=== PATIENT | female | born 1965 | race Caucasian/White ===

== ENCOUNTER 2017-10-14 17:18 | Inpatient (IN) | payer MEDICARE, OTHER ==
[~2017-10-14] VITALS: Ht 147.3 cm; Wt 47.6 kg
[~2017-10-14 17:18] MED LIST: DEPAKOTE250 MG PO; DEPAKOTE500 MG PO; DILANTIN100 MG PO; FOSAMAX70 MG ORAL; FOSAMAX70 MG PO; GEODON40 MG PO; IBUPROFEN600 MG ORAL; KEFLEX500 MG ORAL; KLONOPIN1 MG ORAL; KLONOPIN1 MG PO; MACROBID100 MG ORAL; MORPHINE IR15 MG PO; NAPROXEN SODIU550 M1 ORAL; NITROFURANTOIN100 M2 ORAL; NORCO 5-325 TA1 EACH ORAL; PROTONIX40 MG ORAL; RESTORIL30 MG ORAL; SYMBICORT 1601 PUFFS INH; ZOFRAN4 M3 ORAL
[2017-10-14 17:30] VITALS: BP 139/90
[2017-10-14] MEDS ORDERED: LORazepam Inj 2mg/ml 1ml IV ONE (18:00)
--- NOTE | 2017-10-14 18:01 | Emergency Room Report ---
History of Present Illness General Chief Complaint: Seizure Source: Patient Present Illness HPI Patient is a 52-year-old female who presented after witnessed seizure. Patient prior history of seizure disorder. The patient was noted to have a seizure lasting approximate 7 minutes. Patient had previous he been taking Dilantin but had been off of her medications. The patient poorly had been seizure-free for several weeks. Patient was having increased difficulty with urination. The patient had prior history of bipolar disease as well as CVA. Patient was noted to have increased difficulty with urination Allergies: Coded Allergies: No Known Allergies (Verified Allergy, Unknown, 05/09/08) Patient History Past Medical History: see triage record Reviewed Nursing Documentation: PMH: Agreed; PSxH: Agreed Nursing Documentation-PMH Past Medical History: No History, Except For Hx Cardiac Problems: Yes Hx Hypertension: Yes Hx Pacemaker: No - TRACHEOSTOMY (RESOLVED), HEP C Hx Asthma: No Hx COPD: Yes - emphysema Hx Diabetes: No Hx Cancer: No Hx Gastrointestinal Problems: Yes Hx Dialysis: No Hx Cerebrovascular Accident: Yes - 1991 Hx Transient Ischemic Attacks: No Hx Dementia: No Hx Alzheimer's Disease: No Hx Parkinson's Disease: No Hx Meningitis: No Hx Encephalitis: No Hx Seizures: Yes Hx Epilepsy: No Hx Multiple Sclerosis: No Hx Amyotrophic Lat Sclerosis: No Hx Guillian-Volga Syndrome: No Hx Paralysis: No Hx Peripheral Neuropathy: No Hx Spinal Cord Injury: No Hx Head Trauma: No Hx Traumatic Brain Injury: No Hx Memory Loss: No Hx Concentration Difficulty: Yes Hx Speech Problem: No Hx Tremors: No Hx Vertigo: No Hx Dizziness: Yes Hx Syncope: No Hx Headaches: Yes Hx Aphasia: No Hx Dysphasia: No Hx Numbness: Yes - left lower extremities Hx Weakness: Yes - oleft sided weakness Hx Fatigue: Yes Hx Neurologic Surgery: No Hx Brain Shunt: No Review of Systems All Other Systems: negative except mentioned in HPI Physical Exam Vital Signs Date Time Temp Pulse Resp B/P (MAP) Pulse Ox O2 Delivery O2 Flow Rate FiO2 10/14/17 17:25 98.0 111 22 142/93 94 Room Air 98.1 Sp02 EP Interpretation: reviewed, normal General Appearance: normal inspection, well appearing, no apparent distress, alert, GCS 15, thin, Chronically Ill Head: atraumatic ENT: normal ENT inspection, hearing grossly normal, normal voice Neck: normal inspection, full range of motion, supple, no bony tend Respiratory: normal inspection, lungs clear, normal breath sounds, no respiratory distress, no retraction, no wheezing Cardiovascular #1: regular rate, rhythm, no edema Gastrointestinal: normal inspection, normal bowel sounds, non tender, soft, no guarding, no hernia Genitourinary: no CVA tenderness Musculoskeletal: normal inspection, back normal, normal range of motion Neurologic: normal inspection, alert, oriented x3, responsive, speech normal, motor weakness - left upper extremity contracture Psychiatric: normal inspection, judgement/insight normal, mood/affect normal Skin: normal inspection, normal color, no rash Medical Decision Making Diagnostic Impression: Primary Impression: Seizure Additional Impressions: Left hemiparesis Urinary tract infection ER Course Patient presented for seizure. Differential diagnosis included medication noncompliance, cysticercosis, electrolyte abnormality, mass lesion, or intracranial hemorrhage. Because of complexity of patient's case laboratory testing and imaging studies were ordered. The patient was noted to have prior history of seizure disorder but had been noncompliant the with seizure medications.IV Ativan was ordered for seizure prophylaxis however the patient began seizing prior to medication administration was subsequently administered. The patient Dilantin level and Depakote level were not therapeutic. The patient was subsequently loaded with IV Dilantin.Dr. Esvin Patino was contacted for inpatient management due to panel physician Labs Test 10/14/17 17:48 10/14/17 18:00 10/14/17 18:20 10/15/17 06:08 Phenytoin (Dilantin) Level < 0.5 ug/mL (10-20) Valproic Acid (Depakene) Level < 3 MCG/ML (50-100) Urine Amorphous Sediment Few /LPF (NONE) Urine Opiates Screen Negative (NEGATIVE) Urine Barbiturates Screen Negative (NEGATIVE) Phencyclidine (PCP) Screen Negative (NEGATIVE) Urine Amphetamines Screen Negative (NEGATIVE) Urine Benzodiazepines Screen Negative (NEGATIVE) Urine Cocaine Screen Negative (NEGATIVE) Urine Marijuana (THC) Screen Positive (NEGATIVE) White Blood Count 10.3 K/UL (4.8-10.8) Red Blood Count 4.00 M/UL (4.20-5.40) Hemoglobin 12.7 G/DL (12.0-16.0) Hematocrit 37.4 % (37.0-47.0) Mean Corpuscular Volume 93 FL (80-99) Mean Corpuscular Hemoglobin 31.7 PG (27.0-31.0) Mean Corpuscular Hemoglobin Concent 33.9 G/DL (32.0-36.0) Red Cell Distribution Width 12.1 % (11.6-14.8) Platelet Count 221 K/UL (150-450) Mean Platelet Volume 8.3 FL (6.5-10.1) Neutrophils (%) (Auto) 42.8 % (45.0-75.0) Lymphocytes (%) (Auto) 48.9 % (20.0-45.0) Monocytes (%) (Auto) 6.4 % (1.0-10.0) Eosinophils (%) (Auto) 0.7 % (0.0-3.0) Basophils (%) (Auto) 1.3 % (0.0-2.0) Sodium Level 143 MMOL/L (136-145) Potassium Level 3.4 MMOL/L (3.5-5.1) Chloride Level 109 MMOL/L (98-107) Carbon Dioxide Level 26 MMOL/L (21-32) Anion Gap 8 mmol/L (5-15) Blood Urea Nitrogen 14 mg/dL (7-18) Creatinine 0.6 MG/DL (0.55-1.30) Estimat Glomerular Filtration Rate > 60 mL/min (>60) Glucose Level 100 MG/DL (74-106) Calcium Level 9.0 MG/DL (8.5-10.1) Total Bilirubin 0.6 MG/DL (0.2-1.0) Aspartate Amino Transf (AST/SGOT) 14 U/L (15-37) Alanine Aminotransferase (ALT/SGPT) 15 U/L (12-78) Alkaline Phosphatase 30 U/L (46-116) Total Protein 6.7 G/DL (6.4-8.2) Albumin 3.7 G/DL (3.4-5.0) Globulin 3.0 g/dL Albumin/Globulin Ratio 1.2 (1.0-2.7) Test 10/15/17 13:30 Urine Color Yellow Urine Appearance Cloudy Urine pH 5 (4.5-8.0) Urine Specific [place] 1.020 (1.005-1.035) Urine Protein 1+ (NEGATIVE) Urine Glucose (UA) Negative (NEGATIVE) Urine Ketones 1+ (NEGATIVE) Urine Occult Blood 3+ (NEGATIVE) Urine Nitrite Positive (NEGATIVE) Urine Bilirubin 1+ (NEGATIVE) Urine Urobilinogen 1 MG/DL (0.0-1.0) Urine Leukocyte Esterase 1+ (NEGATIVE) EKG Diagnostic Results Rate: normal Rhythm: NSR ST Segments: no acute changes Last Vital Signs Date Time Temp Pulse Resp B/P (MAP) Pulse Ox O2 Delivery O2 Flow Rate FiO2 10/14/17 17:25 98.0 111 22 142/93 94 Room Air 98.1 Status: unchanged Disposition: ADMITTED INPATIENT Condition: Serious Referrals: NON PHYSICIAN (PCP) Surendra Pinedo MD Oct 14, 2017 18:01
[2017-10-14 18:09] LABS: BASOPHILS % (AUTO) 1.5 % (0.0-2.0); EOSINOPHILS % (AUTO) 0.6 % (0.0-3.0); HEMATOCRIT 41.2 % (37.0-47.0); HEMOGLOBIN 14.2 G/DL (12.0-16.0); LYMPHOCYTES % (AUTO) 40.9 % (20.0-45.0); MEAN CORPUSCULAR VOLUME 92 FL (80-99); MONOCYTES % (AUTO) 6.6 % (1.0-10.0); NEUTROPHILS % (AUTO) 50.4 % (45.0-75.0); PLATELET COUNT 180 K/UL (150-450); RED BLOOD COUNT 4.46 M/UL (4.20-5.40); WHITE BLOOD COUNT 11.1 K/UL (4.8-10.8)
[2017-10-14 18:13] LABS: ANION GAP 14 mmol/L (5-15); BLOOD UREA NITROGEN 18 mg/dL (7-18); CALCIUM 9.4 MG/DL (8.5-10.1); CARBON DIOXIDE 20 MMOL/L (21-32); CHLORIDE 107 MMOL/L (98-107); CREATININE 0.6 MG/DL (0.55-1.30); SODIUM 141 MMOL/L (136-145)
[2017-10-14 18:20] LABS: ALANINE AMINOTRANSFERASE 16 U/L (12-78); ALBUMIN 4.2 G/DL (3.4-5.0); ALBUMIN/GLOBULIN RATIO 1.2 (1.0-2.7); ALKALINE PHOSPHATASE 35 U/L (46-116); ASPARTATE AMINO TRANSFERASE 23 U/L (15-37); BILIRUBIN,TOTAL 0.7 MG/DL (0.2-1.0)
[2017-10-14] MEDS ORDERED: Phenytoin 1,000 MG in NS 275 ML IVPB ONE (18:30)
[2017-10-14 19:04] LABS: APPEARANCE,URINE CLEAR; BILIRUBIN, URINE NEGATIVE (NEGATIVE); COLOR,URINE PALE YELLOW; GLUCOSE, URINE (UA) NEGATIVE (NEGATIVE); KETONES,URINE NEGATIVE (NEGATIVE); LEUKOCYTE ESTERASE ,URINE NEGATIVE (NEGATIVE); NITRITE,URINE NEGATIVE (NEGATIVE); PH,URINE 5 (4.5-8.0); PROTEIN,URINE NEGATIVE (NEGATIVE); UROBILINOGEN,URINE NORMAL MG/DL (0.0-1.0)
[2017-10-14] MEDS ORDERED: LORazepam Inj 2mg/ml 1ml IV PRN (19:15)
[2017-10-14] MEDS ORDERED: Miralax 17gm pkt ORAL PRN (19:15)
[2017-10-14] MEDS ORDERED: Mylanta II UD 30ml ORAL PRN (19:15)
[2017-10-14 19:30] VITALS: BP 118/74
[2017-10-14 19:55] VITALS: BP 139/90
[2017-10-14] MEDS ORDERED: IBUPROFEN600 MG ORAL (19:56)
[2017-10-14] MEDS ORDERED: BACLOFEN10 MG ORAL (19:56)
[2017-10-14 20:00] VITALS: BP 129/68
[2017-10-14] MEDS: Phenytoin 100mg cap ORAL SCH (21:16)
[2017-10-14] MEDS: Heparin 5000 units/ml inj SUBQ SCH (21:17)
[2017-10-14] MEDS: Zolpidem 5mg tab ORAL PRN (22:40)
[2017-10-15] VITALS: BP 118/74
[2017-10-15 04:00] VITALS: BP 103/72
[2017-10-15 06:48] LABS: BASOPHILS % (AUTO) 1.3 % (0.0-2.0); EOSINOPHILS % (AUTO) 0.7 % (0.0-3.0); HEMATOCRIT 37.4 % (37.0-47.0); HEMOGLOBIN 12.7 G/DL (12.0-16.0); LYMPHOCYTES % (AUTO) 48.9 % (20.0-45.0); MEAN CORPUSCULAR VOLUME 93 FL (80-99); MONOCYTES % (AUTO) 6.4 % (1.0-10.0); NEUTROPHILS % (AUTO) 42.8 % (45.0-75.0); PLATELET COUNT 221 K/UL (150-450); RED CELL DISTRIBUTION WIDTH 12.1 % (11.6-14.8); WHITE BLOOD COUNT 10.3 K/UL (4.8-10.8)
[2017-10-15 07:07] LABS: ALANINE AMINOTRANSFERASE 15 U/L (12-78); ALBUMIN 3.7 G/DL (3.4-5.0); ALBUMIN/GLOBULIN RATIO 1.2 (1.0-2.7); ALKALINE PHOSPHATASE 30 U/L (46-116); ANION GAP 8 mmol/L (5-15); ASPARTATE AMINO TRANSFERASE 14 U/L (15-37); BILIRUBIN,TOTAL 0.6 MG/DL (0.2-1.0); BLOOD UREA NITROGEN 14 mg/dL (7-18); CARBON DIOXIDE 26 MMOL/L (21-32); CHLORIDE 109 MMOL/L (98-107); CREATININE 0.6 MG/DL (0.55-1.30); POTASSIUM 3.4 MMOL/L (3.5-5.1); SODIUM 143 MMOL/L (136-145)
[2017-10-15 08:00] VITALS: BP 111/74
[2017-10-15] MEDS: Depakote 500mg tab ORAL SCH ×2 (08:12→12:15)
[2017-10-15] MEDS: Heparin 5000 units/ml inj SUBQ SCH ×2 (08:14→21:34)
--- NOTE | 2017-10-15 11:07 | Cardiac Electrophysiology PN ---
Subjective Subjective [id number] Objective Last 24 Hour Vital Signs Date Time Temp Pulse Resp B/P (MAP) Pulse Ox O2 Delivery O2 Flow Rate FiO2 10/15/17 08:00 109 10/15/17 08:00 97.2 101 18 111/74 (86) 98 97.2 10/15/17 04:00 97.7 92 19 103/72 (82) 98 97.7 10/15/17 04:00 107 10/15/17 00:00 116 10/15/17 00:00 97.9 97 20 118/74 (89) 99 97.9 10/14/17 22:26 Room Air 10/14/17 20:00 96 10/14/17 20:00 97.0 98 18 129/68 (88) 97 97.0 10/14/17 19:55 98.3 110 19 139/90 100 Room Air 98.3 10/14/17 19:55 98.3 110 18 139/90 100 Room Air 10/14/17 19:30 98.3 110 17 118/74 98 Room Air 98.3 10/14/17 17:30 100 18 Room Air 10/14/17 17:30 98.3 100 18 139/90 98 Room Air 98.3 10/14/17 17:25 98.0 111 22 142/93 94 Room Air 98.1 Intake and Output 10/14/17 10/15/17 19:00 07:00 Intake Total 535 ml Balance 535 ml Intake Oral 240 ml IV Total 295 ml # Voids 1 4 Laboratory Tests Test 10/14/17 17:48 10/14/17 18:00 10/14/17 18:20 10/15/17 06:08 White Blood Count 11.1 K/UL (4.8-10.8) H 10.3 K/UL (4.8-10.8) Red Blood Count 4.46 M/UL (4.20-5.40) 4.00 M/UL (4.20-5.40) L Hemoglobin 14.2 G/DL (12.0-16.0) 12.7 G/DL (12.0-16.0) Hematocrit 41.2 % (37.0-47.0) 37.4 % (37.0-47.0) Mean Corpuscular Volume 92 FL (80-99) 93 FL (80-99) Mean Corpuscular Hemoglobin 31.7 PG (27.0-31.0) H 31.7 PG (27.0-31.0) H Mean Corpuscular Hemoglobin Concent 34.3 G/DL (32.0-36.0) 33.9 G/DL (32.0-36.0) Red Cell Distribution Width 12.0 % (11.6-14.8) 12.1 % (11.6-14.8) Platelet Count 180 K/UL (150-450) 221 K/UL (150-450) Mean Platelet Volume 6.4 FL (6.5-10.1) L 8.3 FL (6.5-10.1) Neutrophils (%) (Auto) 50.4 % (45.0-75.0) 42.8 % (45.0-75.0) L Lymphocytes (%) (Auto) 40.9 % (20.0-45.0) 48.9 % (20.0-45.0) H Monocytes (%) (Auto) 6.6 % (1.0-10.0) 6.4 % (1.0-10.0) Eosinophils (%) (Auto) 0.6 % (0.0-3.0) 0.7 % (0.0-3.0) Basophils (%) (Auto) 1.5 % (0.0-2.0) 1.3 % (0.0-2.0) Sodium Level 141 MMOL/L (136-145) 143 MMOL/L (136-145) Potassium Level 4.0 MMOL/L (3.5-5.1) 3.4 MMOL/L (3.5-5.1) L Chloride Level 107 MMOL/L (98-107) 109 MMOL/L (98-107) H Carbon Dioxide Level 20 MMOL/L (21-32) L 26 MMOL/L (21-32) Anion Gap 14 mmol/L (5-15) 8 mmol/L (5-15) Blood Urea Nitrogen 18 mg/dL (7-18) 14 mg/dL (7-18) Creatinine 0.6 MG/DL (0.55-1.30) 0.6 MG/DL (0.55-1.30) Estimat Glomerular Filtration Rate > 60 mL/min (>60) > 60 mL/min (>60) Glucose Level 111 MG/DL (74-106) H 100 MG/DL (74-106) Calcium Level 9.4 MG/DL (8.5-10.1) 9.0 MG/DL (8.5-10.1) Total Bilirubin 0.7 MG/DL (0.2-1.0) 0.6 MG/DL (0.2-1.0) Aspartate Amino Transf (AST/SGOT) 23 U/L (15-37) 14 U/L (15-37) L Alanine Aminotransferase (ALT/SGPT) 16 U/L (12-78) 15 U/L (12-78) Alkaline Phosphatase 35 U/L (46-116) L 30 U/L (46-116) L Total Protein 7.8 G/DL (6.4-8.2) 6.7 G/DL (6.4-8.2) Albumin 4.2 G/DL (3.4-5.0) 3.7 G/DL (3.4-5.0) Globulin 3.6 g/dL 3.0 g/dL Albumin/Globulin Ratio 1.2 (1.0-2.7) 1.2 (1.0-2.7) Phenytoin (Dilantin) Level < 0.5 ug/mL (10-20) L Valproic Acid (Depakene) Level < 3 MCG/ML (50-100) L Urine Color Pale yellow Urine Appearance Clear Urine pH 5 (4.5-8.0) Urine Specific [place] 1.010 (1.005-1.035) Urine Protein Negative (NEGATIVE) Urine Glucose (UA) Negative (NEGATIVE) Urine Ketones Negative (NEGATIVE) Urine Occult Blood 2+ (NEGATIVE) H Urine Nitrite Negative (NEGATIVE) Urine Bilirubin Negative (NEGATIVE) Urine Urobilinogen Normal MG/DL (0.0-1.0) Urine Leukocyte Esterase Negative (NEGATIVE) Urine RBC 0-2 /HPF (0 - 2) Urine WBC 0-2 /HPF (0 - 2) Urine Squamous Epithelial Cells Occasional /LPF Urine Amorphous Sediment Few /LPF (NONE) H Urine Bacteria Occasional /HPF (NONE) Urine Opiates Screen Negative (NEGATIVE) Urine Barbiturates Screen Negative (NEGATIVE) Phencyclidine (PCP) Screen Negative (NEGATIVE) Urine Amphetamines Screen Negative (NEGATIVE) Urine Benzodiazepines Screen Negative (NEGATIVE) Urine Cocaine Screen Negative (NEGATIVE) Urine Marijuana (THC) Screen Positive (NEGATIVE) H Hugh Chapman MD Oct 15, 2017 11:07
--- NOTE | 2017-10-15 11:55 | Consultation ---
History of Present Illness General Date patient seen: Oct 15, 2017 Chief Complaint: Seizure Present Illness HPI 52-year-old female with PMHx of chronic seizures, bipolar, CVA presented to ER with CC of witnessed seizure, lasting approximate 7 minutes. Patient had previously been taking Dilantin but had been off of her medications. She is also c/o difficulty with urination and dysuria. Allergies: Coded Allergies: No Known Allergies (Verified Allergy, Unknown, 05/09/08) Medication History Scheduled Alendronate Sodium* (Fosamax*), 70 MG ORAL ONCE A WEEK, (Reported) Budesonide/Formoterol Fumarate (Symbicort 160-4.5 Mcg Inhaler), 2 PUFF INH TWICE A DAY, (Reported) Clonazepam* (Klonopin*), 1 MG ORAL bid, (Reported) Divalproex Sodium (Depakote), 500 MG PO tid, (Reported) Divalproex Sodium* (Depakote*), 300 MG PO hs, (Reported) Ziprasidone Hcl* (Geodon*), 80 MG PO bid, (Reported) Scheduled PRN Baclofen* (Baclofen*), 10 MG ORAL THREE TIMES A DAY PRN for Muscle Spasm, ( Reported) Ibuprofen* (Motrin*), 800 MG ORAL THREE TIMES A DAY PRN for For Pain, (Reported) Ondansetron* (Zofran*), 4 MG ORAL tid PRN for Nausea & Vomiting, (Reported) Discontinued Medications Cephalexin* (Keflex*), 500 MG ORAL EVERY 12 HOURS Discontinued Reason: Therapy completed Ibuprofen* (Motrin*), 600 MG ORAL Q8H PRN for For Pain Discontinued Reason: Medication dose changed Nitrofurantoin Monohyd/M-Cryst* (Macrobid 100 Mg*), 100 MG ORAL EVERY 12 HOURS Discontinued Reason: Therapy completed Phenytoin Sodium Extended* (Dilantin*), 300 MG PO QHS, (Reported) Discontinued Reason: Pt stopped taking med Temazepam (Restoril*), 30 MG ORAL BEDTIME, (Reported) Discontinued Reason: Therapy completed Patient History Healthcare decision maker Resuscitation status Full Code Advanced Directive on File Past Medical/Surgical History Past Medical/Surgical History: (1) Seizure (2) Left hemiparesis (3) Cerebral vascular disease (4) Bipolar disorder (5) Hepatitis C Review of Systems All Other Systems: negative except mentioned in HPI Physical Exam General Appearance: WD/WN Lines, tubes and drains: peripheral HEENT: normocephalic, atraumatic Neck: non-tender, normal alignment Respiratory/Chest: chest wall non-tender, lungs clear Cardiovascular/Chest: normal peripheral pulses, normal rate Abdomen: normal bowel sounds, non tender Genitourinary/Rectal: normal genital exam, normal rectal exam Extremities: normal range of motion, non-tender Neurologic: industrial engineer II-XII grossly normal Last 24 Hour Vital Signs Date Time Temp Pulse Resp B/P (MAP) Pulse Ox O2 Delivery O2 Flow Rate FiO2 10/15/17 08:00 109 10/15/17 08:00 97.2 101 18 111/74 (86) 98 97.2 10/15/17 04:00 97.7 92 19 103/72 (82) 98 97.7 10/15/17 04:00 107 10/15/17 00:00 116 10/15/17 00:00 97.9 97 20 118/74 (89) 99 97.9 10/14/17 22:26 Room Air 10/14/17 20:00 96 10/14/17 20:00 97.0 98 18 129/68 (88) 97 97.0 10/14/17 19:55 98.3 110 19 139/90 100 Room Air 98.3 10/14/17 19:55 98.3 110 18 139/90 100 Room Air 10/14/17 19:30 98.3 110 17 118/74 98 Room Air 98.3 10/14/17 17:30 100 18 Room Air 10/14/17 17:30 98.3 100 18 139/90 98 Room Air 98.3 10/14/17 17:25 98.0 111 22 142/93 94 Room Air 98.1 Intake and Output 10/14/17 10/15/17 19:00 07:00 Intake Total 535 ml Balance 535 ml Intake Oral 240 ml IV Total 295 ml # Voids 1 4 Laboratory Tests Test 10/14/17 17:48 10/14/17 18:00 10/14/17 18:20 10/15/17 06:08 White Blood Count 11.1 K/UL (4.8-10.8) H 10.3 K/UL (4.8-10.8) Red Blood Count 4.46 M/UL (4.20-5.40) 4.00 M/UL (4.20-5.40) L Hemoglobin 14.2 G/DL (12.0-16.0) 12.7 G/DL (12.0-16.0) Hematocrit 41.2 % (37.0-47.0) 37.4 % (37.0-47.0) Mean Corpuscular Volume 92 FL (80-99) 93 FL (80-99) Mean Corpuscular Hemoglobin 31.7 PG (27.0-31.0) H 31.7 PG (27.0-31.0) H Mean Corpuscular Hemoglobin Concent 34.3 G/DL (32.0-36.0) 33.9 G/DL (32.0-36.0) Red Cell Distribution Width 12.0 % (11.6-14.8) 12.1 % (11.6-14.8) Platelet Count 180 K/UL (150-450) 221 K/UL (150-450) Mean Platelet Volume 6.4 FL (6.5-10.1) L 8.3 FL (6.5-10.1) Neutrophils (%) (Auto) 50.4 % (45.0-75.0) 42.8 % (45.0-75.0) L Lymphocytes (%) (Auto) 40.9 % (20.0-45.0) 48.9 % (20.0-45.0) H Monocytes (%) (Auto) 6.6 % (1.0-10.0) 6.4 % (1.0-10.0) Eosinophils (%) (Auto) 0.6 % (0.0-3.0) 0.7 % (0.0-3.0) Basophils (%) (Auto) 1.5 % (0.0-2.0) 1.3 % (0.0-2.0) Sodium Level 141 MMOL/L (136-145) 143 MMOL/L (136-145) Potassium Level 4.0 MMOL/L (3.5-5.1) 3.4 MMOL/L (3.5-5.1) L Chloride Level 107 MMOL/L (98-107) 109 MMOL/L (98-107) H Carbon Dioxide Level 20 MMOL/L (21-32) L 26 MMOL/L (21-32) Anion Gap 14 mmol/L (5-15) 8 mmol/L (5-15) Blood Urea Nitrogen 18 mg/dL (7-18) 14 mg/dL (7-18) Creatinine 0.6 MG/DL (0.55-1.30) 0.6 MG/DL (0.55-1.30) Estimat Glomerular Filtration Rate > 60 mL/min (>60) > 60 mL/min (>60) Glucose Level 111 MG/DL (74-106) H 100 MG/DL (74-106) Calcium Level 9.4 MG/DL (8.5-10.1) 9.0 MG/DL (8.5-10.1) Total Bilirubin 0.7 MG/DL (0.2-1.0) 0.6 MG/DL (0.2-1.0) Aspartate Amino Transf (AST/SGOT) 23 U/L (15-37) 14 U/L (15-37) L Alanine Aminotransferase (ALT/SGPT) 16 U/L (12-78) 15 U/L (12-78) Alkaline Phosphatase 35 U/L (46-116) L 30 U/L (46-116) L Total Protein 7.8 G/DL (6.4-8.2) 6.7 G/DL (6.4-8.2) Albumin 4.2 G/DL (3.4-5.0) 3.7 G/DL (3.4-5.0) Globulin 3.6 g/dL 3.0 g/dL Albumin/Globulin Ratio 1.2 (1.0-2.7) 1.2 (1.0-2.7) Phenytoin (Dilantin) Level < 0.5 ug/mL (10-20) L Valproic Acid (Depakene) Level < 3 MCG/ML (50-100) L Urine Color Pale yellow Urine Appearance Clear Urine pH 5 (4.5-8.0) Urine Specific [place] 1.010 (1.005-1.035) Urine Protein Negative (NEGATIVE) Urine Glucose (UA) Negative (NEGATIVE) Urine Ketones Negative (NEGATIVE) Urine Occult Blood 2+ (NEGATIVE) H Urine Nitrite Negative (NEGATIVE) Urine Bilirubin Negative (NEGATIVE) Urine Urobilinogen Normal MG/DL (0.0-1.0) Urine Leukocyte Esterase Negative (NEGATIVE) Urine RBC 0-2 /HPF (0 - 2) Urine WBC 0-2 /HPF (0 - 2) Urine Squamous Epithelial Cells Occasional /LPF Urine Amorphous Sediment Few /LPF (NONE) H Urine Bacteria Occasional /HPF (NONE) Urine Opiates Screen Negative (NEGATIVE) Urine Barbiturates Screen Negative (NEGATIVE) Phencyclidine (PCP) Screen Negative (NEGATIVE) Urine Amphetamines Screen Negative (NEGATIVE) Urine Benzodiazepines Screen Negative (NEGATIVE) Urine Cocaine Screen Negative (NEGATIVE) Urine Marijuana (THC) Screen Positive (NEGATIVE) H Height (Feet): 4 Height (Inches): 10.00 Weight (Pounds): 105 Medications Current Medications Medications (Trade) Dose Ordered Sig/Patricia Route PRN Reason Start Time Stop Time Status Last Admin Dose Admin Acetaminophen (Tylenol) 650 mg Q4H PRN ORAL fever 10/14/17 19:15 11/13/17 19:14 10/15/17 08:13 Al Hydroxide/Mg Hydroxide (Mylanta II) 30 ml Q6H PRN ORAL dyspepsia 10/14/17 19:15 11/13/17 19:14 Clonazepam (KlonoPIN) 1 mg BID ORAL 10/15/17 09:00 10/22/17 08:59 10/15/17 08:12 Clonidine HCl (Catapres Tab) 0.1 mg Q4H PRN ORAL For High Blood Pressure 10/15/17 11:15 11/14/17 11:14 Dextrose (Dextrose 50%) STAT PRN IV Hypoglycemia 10/14/17 19:15 11/13/17 19:14 Divalproex Sodium (Depakote) 500 mg TID ORAL 10/15/17 09:00 11/14/17 08:59 10/15/17 08:12 Heparin Sodium (Porcine) (Heparin 5000 units/ml) 5,000 units EVERY 12 HOURS SUBQ 10/14/17 21:00 11/13/17 20:59 10/15/17 08:14 Lorazepam (Ativan 2mg/ml 1ml) 2 mg EVERY HOUR PRN IV seizures 10/14/17 19:15 10/21/17 19:14 Morphine Sulfate (Morphine Sulfate) 1 mg Q4H PRN IVP For Pain 10/14/17 19:15 10/21/17 19:14 Ondansetron HCl (Zofran) 4 mg Q6H PRN IVP Nausea & Vomiting 10/14/17 19:15 11/13/17 19:14 Phenazopyridine HCl (Pyridium) 100 mg THREE TIMES A DAY ORAL 10/15/17 13:00 11/14/17 12:59 Phenytoin (Dilantin) 300 mg QHS ORAL 10/14/17 21:00 11/13/17 20:59 10/14/17 21:16 Polyethylene Glycol (Miralax) 17 gm HSPRN PRN ORAL Constipation 10/14/17 19:15 11/13/17 19:14 Ziprasidone (Geodon) 80 mg TWICE A DAY ORAL 10/15/17 18:00 11/14/17 17:59 Zolpidem Tartrate (Ambien) 5 mg HSPRN PRN ORAL Insomnia 10/14/17 19:15 10/21/17 19:14 10/14/17 22:40 Assessment/Plan Problem List: (1) Acute encephalopathy ICD Codes: G93.40 - Encephalopathy, unspecified SNOMED: 92697870, 758463530 (2) Seizure ICD Codes: R56.9 - Unspecified convulsions SNOMED: 48415730 (3) Bipolar disorder ICD Codes: F31.9 - Bipolar disorder, unspecified SNOMED: 67150066 (4) Left hemiparesis ICD Codes: G81.94 - Hemiplegia, unspecified affecting left nondominant side SNOMED: 055975277 (5) UTI (urinary tract infection) ICD Codes: N39.0 - Urinary tract infection, site not specified SNOMED: 12981636 (6) Hepatitis C ICD Codes: B19.20 - Unspecified viral hepatitis C without hepatic coma SNOMED: 01877329 Assessment/Plan telemetry monitoring Neuro evaluation check UA pt/ot symptomatic treatment Kylee Holley MD Oct 15, 2017 11:55
[2017-10-15 12:00] VITALS: BP 106/69
[2017-10-15 13:49] LABS: APPEARANCE,URINE CLOUDY; BILIRUBIN, URINE 1+ (NEGATIVE); COLOR,URINE YELLOW; GLUCOSE, URINE (UA) NEGATIVE (NEGATIVE); KETONES,URINE 1+ (NEGATIVE); LEUKOCYTE ESTERASE ,URINE 1+ (NEGATIVE); NITRITE,URINE POSITIVE (NEGATIVE); PH,URINE 5 (4.5-8.0); PROTEIN,URINE 1+ (NEGATIVE); UROBILINOGEN,URINE 1 MG/DL (0.0-1.0)
--- NOTE | 2017-10-15 14:53 | Consultation ---
Consult Note Consult Note NEUROLOGY CONSULTATION: Full note dictated #[id number] 52 y/o, RH, CF with PH of BAD, a stroke with left paresis, a post-stroke seizure disorder, polysubstance use, and prior UTIs. She had been seizure-free for ~ 1 years and so she decided to stop taking her Dilantin and Depakote. Yesterday she had a seizure at home, then another seizure in the car on her way to the hospital and a third seizure in the ER. She herself cannot remember what exactly transpired when she had he seizures, but she has been told that she passes out and then has abnormal left body jerking and then the entire body jerks, following which she is unresponsive for sometime and then confused for sometime. ON EXAM: Problems with memory, VSF, HCF Left hemiparesis - face, and UE>LE Pathologically brisk DTRs on left with extensor plantar. IMPRESSION: 1. Breakthrough seizures due to discontinuation of antiseizure medicines, use of THC, UTI. 2. Stroke with left hemiparesis. REC: Agree with restarting Dilantin 300 mg q HS Change Depakote to 750 mg q 12 H Rx of UTI Patient made aware the she has to take her antiseizure medicines for the rest of her life. Seizure hygiene. Patricia Stoll M.D., M.S.P.H. PATRICIA STOLL Oct 15, 2017 14:53
[2017-10-15 16:00] VITALS: BP 105/72
--- NOTE | 2017-10-15 16:28 | History & Physical ---
History and Physical History & Physicial Dictated for Int Med-Dr Patino no. [id number]. Benjamin Crook MD Oct 15, 2017 16:28
[2017-10-15] MEDS: Ziprasidone 20mg cap ORAL SCH (17:31)
--- NOTE | 2017-10-15 18:15 | Consultation ---
DATE OF CONSULTATION: 10/15/2017 CARDIOLOGY CONSULTATION CONSULTING PHYSICIAN: Hugh Chapman M.D. REFERRING PHYSICIANS: 1. Esvin Patino M.D. 2. Kylee Holley M.D. REASON FOR CONSULTATION: Seizure versus syncope. HISTORY OF PRESENT ILLNESS: The patient is a 52-year-old lady with history of seizure disorder and CVA with left hemiplegia as well as history of tracheostomy that has been closed as well as history of emphysema, who was brought to the emergency room after she had a witnessed seizures. That lasted for several minutes. The patient has been taking the Dilantin, but has been off of her medication as she has been seizure free for several weeks. Cardiology consultation was requested for further evaluation and management. PAST MEDICAL HISTORY: As mentioned above. FAMILY HISTORY: Noncontributory. SOCIAL HISTORY: She does not smoke or drink alcohol. REVIEW OF SYSTEMS: Thoroughly performed and was negative other than what was mentioned in the history of present illness. PHYSICAL EXAMINATION: VITAL SIGNS: Show blood pressure of 130/70, pulse is 70, respirations 18, and she is afebrile. HEAD AND NECK: Shows no JVD. LUNGS: Clear. CARDIOVASCULAR: Shows regular S1 and S2 with no gallop or murmur. ABDOMEN: Soft. EXTREMITIES: No pitting edema. DIAGNOSTIC DATA: Her EKG shows sinus rhythm with a short NC interval and right atrial enlargement. LABORATORY DATA: Her labs show white count of 10.2, hemoglobin of 12.7, hematocrit of 37.4, and platelet count of 221,000. Sodium 142, potassium 3.4, BUN of 14, creatinine 0.6, and glucose of 100. Her urine toxicology was positive for marijuana and Dilantin level of 10.5. ASSESSMENT AND PLAN: 1. Hypertension. Due to the patient is off of antihypertensives at this time, I will add p.r.n. clonidine. 2. Status post seizure versus syncope, likely seizure, Dilantin level was low. The patient is on Dilantin currently. We will get an echocardiogram to evaluate for ejection fraction and wall motion abnormality. 3. History of tracheostomy that has been closed. Thank you very much, Dr. Patino and Dr. Holley, for allowing me to participate in the care of this patient. Please do not hesitate to contact me for any questions regarding my evaluation. Hugh Chapman M.D. DR: JUAN LUIS JOB#: [id number] CC:
[2017-10-15] MEDS: Morphine Sulfate 2mg/ml Inj(IV/IM USE ONLY) IVP PRN (19:48)
[2017-10-15 20:00] VITALS: BP 108/76
--- NOTE | 2017-10-15 21:00 | Consultation ---
DATE OF CONSULTATION: 10/15/2017 NEUROLOGY CONSULTATION CONSULTING PHYSICIAN: Malachi Stoll M.D. REFERRING PHYSICIANS: Esvin Patino M.D. & Kylee Holley M.D. HISTORY: Ms. Sandie Chowdary is a 52-year-old, right-handed, lady, who has past history of bipolar affective disorder, polysubstance abuse, a stroke with left-sided weakness in the , and a poststroke seizure disorder. She also has been plagued by multiple urinary tract infections. She was functioning relatively well until approximately a year ago when she discontinued taking her Dilantin and Depakote because she had no seizures for some time. Then on 10/14/17, she had a seizure at home, then another seizure in the car on the way to the hospital, and a third seizure in the emergency room. As a result of that, she was hospitalized. As per the patient, she herself cannot remember what exactly happens when she has seizures. She however has been told that she passes out and then has abnormal left body jerking and then the entire body starts jerking. Following that, she is unresponsive for some time and then confused and disoriented for some more time. She at this point in time feels that she is back to her normal self. She denies any increased weakness on one side or the other, numbness on one side or the other, problems with speech, problems with language, problems with vision, problems with memory, or other neurological problems. She however is quite worried that she has not got her Geodon yet and feels that her psychiatric illness may flare up. PAST HISTORY: Significant for bipolar affective disorder, a stroke with left-sided weakness numerous years ago, poststroke seizure disorder, polysubstance abuse, and prior urinary tract infections. FAMILY HISTORY: Nothing significant as per the patient. PERSONAL HISTORY: HOME: She lives with the parents. WORK: She is unemployed. HABITS: She used to smoke, drink, and use various different drugs in the past, but at this point, she tells me the last time she used any drug was marijuana a few months ago. PHYSICAL EXAMINATION: GENERAL: She is a well-developed, well-nourished, pleasant lady, lying in bed, in no acute distress. VITAL SIGNS: Pulse 103/minute, blood pressure 106/69 mmHg, respirations 18/minute, and temperature 98.2 degrees Fahrenheit. HEAD: Normocephalic and atraumatic. NECK: No neck rigidity was observed. EENT: Examination benign. NEUROLOGICAL EXAMINATION: MENTAL STATUS EXAMINATION: She was awake and alert. She was oriented to person, place, and time. She was able to recall 3/3 words immediately, but could only remember 2/3 words in 1 minute and 3 minutes even on the second trial. She was able to remember presidents, Trump and Obama, but could not remember presidents prior to that. Her mathematical skills were impaired. Her visuospatial function was also impaired. SPEECH: She had mild dysarthria. LANGUAGE: She had anomia for low-frequency words. CRANIAL NERVE EXAMINATION: II: The visual barr were intact to confrontation testing. III, IV, : External ocular movements were full and the pupils 3 mm in diameter, equal, round, regular, and reactive to light. V: She had normal facial sensations and the temporales, masseters, and pterygoids functioned normally. VII: She had left VII central facial paresis. VIII: She was able to hear and had no nystagmus. IX: The palate moved symmetrically on phonation. X: She had no hoarseness of voice. XI: The sternocleidomastoids and trapezii functioned normally. XII: The tongue was in the midline without any fasciculations or atrophy. MOTOR SYSTEM: The tone was increased on the left side with a significant degree of spasticity involving the upper extremity more than lower extremity. Examination of muscle mass revealed wasting of the left upper and lower extremities and she had her left upper extremity in a flexion contracture. Examination of power revealed G 5/5 power on the right side. On the left side, she had G 0/5 power in the finger flexors and finger extensors, G 2/5 in the wrist extensors and wrist flexors, G 5-/5 in the elbow flexors and elbow extensors, G 4+/5 in the left deltoid, G 4-/5 in the left iliopsoas, and G 4++/5 in the toe extensors on the left. SENSORY EXAMINATION: She had intact sensations to pinprick, light touch, and graphesthesia. COORDINATION: She performed well on vzzlbl-ir-eiaz and [id number]-po-vrwv testing on the right side. On the left side, she was unable to perform ugkzzg-hr-ishh testing and the paqv-oc-fchp testing was clumsy. REFLEXES: 2+ on the right and 3+ on the left in the biceps, triceps, brachioradialis, and knees; zero at both ankles. The plantar response was flexor on the right and extensor on the left. STANCE: She stood up independently. GAIT: She walked independently with a left hemiparetic gait. DIAGNOSTIC IMPRESSION: 1. Ms. Sandie Chowdary is a 52-year-old, right-handed, lady, with past history of bipolar affective disorder, stroke with left-sided paresis, poststroke seizure disorder, polysubstance abuse, and prior urinary tract infections, who stopped taking antiseizure medicine about a year ago because she had no seizures for quite sometime and then on 10/14/17 had a flurry of seizures. 2. On neurological examination, at this time, she does demonstrate significant problems with recent and remote memory, visuospatial function, higher cognitive function, and language. She also has a left hemiparesis involving the face and upper extremity more than the lower extremity. Her deep tendon reflexes are brisker on the left side compared to the right. She has an extensor plantar response on the left side. In addition, she walks with left hemiparetic gait. 3. Her last CT scan of the brain performed at [facility] was on 12/30/2015, and revealed an old right frontal and basal ganglion infarct. 4. Her laboratory data on admission revealed that her WBC count was elevated to 11,100, but the rest of her CBC was benign. The chemistry panel revealed a glucose at 111 and an alkaline phosphatase at 35, but the rest of the chemistry panel was also benign. The urine toxicology screen revealed that she had a positive screen for cannabinol. Her Dilantin and Depakote levels were nonmeasurable. Her urinalysis from 10/15/2017, revealed 1+ leukocyte esterase, 2-4 RBCs, and 5-10 WBCs with many bacteria in the urine. 5. The patient's history, neurological examination, laboratory data, and imaging studies are most compatible with breakthrough seizures due to discontinuation of her antiseizure medicine and possibly the acute urinary tract infection and the use of cannabinols. 6. The risk of the patient having recurrent seizures is high if she does not use antiseizure medicines. RECOMMENDATIONS: 1. The patient was given an explanation of the above-mentioned findings. 2. She was made aware that she needed to take her antiseizure medicines for the rest of her life. 3. She was instructed on the details of seizure hygiene. 4. Agree with restarting the patient on Dilantin 300 mg q HS. 5. The patient's Depakote will be changed to 750 mg q 12 hours. 6. The patient's urinary tract infection should be treated appropriately. 7. The patient will be observed closely and depending on how she fares over the next day or so, further recommendations will be given. Thank you for entrusting me with the care of Ms. Chowdary. I shall follow her with you. Malachi Stoll M.D., M.S.P.H. DR: Michele JOB#: [id number] MTDNury
[2017-10-15] MEDS: Phenytoin 100mg cap ORAL SCH (21:33)
[2017-10-15] MEDS: Zolpidem 5mg tab ORAL PRN ×2 (21:35→23:53)
--- NOTE | 2017-10-15 23:00 | History and Physical Report ---
DATE OF ADMISSION: 10/14/2017 CHIEF COMPLAINT: The patient is a 52-year-old white female, who presents with chief complaint of seizure. HISTORY OF PRESENT ILLNESS: The patient has a history of cerebrovascular disease. The patient had a cerebrovascular accident in 1991. The patient was on the ventilator at that time. The patient is status post tracheostomy and tracheostomy reversal due to cerebrovascular accident in 1991. The patient states she has stopped taking her Dilantin and Depakote 1 year ago after being seizure free for 1 year. The patient was on Dilantin and Depakote. The patient has stopped taking Dilantin and Depakote recently because she had not had a seizure in 1 year. The patient states history of present illness began two days ago. The patient began to experience increased frequency of urination. The patient also had dysuria. The patient states she was on her way to the hospital to have a urinalysis performed. The patient had a seizure on the way to the hospital. The patient then had a witnessed seizure after EMS was called. The patient had another seizure at [facility] emergency room. The patient presented to [facility] emergency room with chief complaint of breakthrough seizures. The patient is admitted with witnessed seizure. PAST MEDICAL HISTORY: Significant for 1. Cerebrovascular disease, status post cerebrovascular accident in 1991. 2. Resultant left hemiparesis with contractures. 3. Seizure disorder. 4. Bipolar depression. PAST SURGICAL HISTORY: Significant for 1. Tracheostomy in 1991. 2. Multiple chest tubes placed in 1991 secondary to pneumothorax. CURRENT MEDICATIONS: 1. Fosamax 70 mg 1 tablet p.o. daily. 2. Baclofen 10 mg p.o. 3 times daily. 3. Symbicort 160/4.5 mg two puffs p.o. twice daily. 4. Klonopin 1 mg p.o. twice daily. 5. Depakote 500 mg p.o. 3 times daily. 6. Ibuprofen 800 mg p.o. 3 times daily. 7. Zofran 4 mg p.o. 3 times daily. 8. Geodon 80 mg p.o. twice daily. ALLERGIES: No known drug allergies. SOCIAL HISTORY: The patient lives with her parents. The patient has been twice. The patient denies tobacco use having quit 1 year ago. The patient smoked 1 pack of cigarettes daily prior to 1 year ago. The patient denies alcohol use. REVIEW OF SYSTEMS: CONSTITUTIONAL: The patient denies weight loss or weight gain. The patient denies fever or chills. HEENT: The patient denies ear or throat pain. The patient denies headache. CARDIOVASCULAR: The patient denies palpitations or chest pain. CHEST: The patient denies wheeze or shortness of breath. ABDOMEN: The patient denies nausea, vomiting, diarrhea, or constipation. GENITOURINARY: The patient complains of dysuria as above. The patient complains of increased frequency of urination. The patient denies hematuria. NEUROMUSCULAR: The patient complains of seizure as above. The patient denies generalized weakness. PHYSICAL EXAMINATION: GENERAL: The patient is a well-developed and well-nourished white female, in no apparent distress. VITAL SIGNS: Temperature 97.9 degrees, respirations 20, pulse 97, and blood pressure 118/74. HEENT: Eyes, pupils equal and responsive to light and accommodation. Extraocular movements are intact. NECK: Supple without lymphadenopathy. CHEST: Lungs are clear to auscultation bilaterally without wheezes or rales. CARDIOVASCULAR: Regular rhythm and rate. S1 and S2 are normal without murmurs, rubs, or gallops. ABDOMEN: Soft, nontender, nondistended. Positive bowel sounds. No evidence of hepatosplenomegaly. Currently, no rebound or guarding noted. EXTREMITIES: There contractures on the left. Otherwise, extremities negative for clubbing, cyanosis, or edema. RECTAL: Refused. GENITAL: Refused. NEUROLOGIC: The patient has a flaccid paralysis with contractures on the left upper and left lower extremity. The patient also has a left facial droop. LABORATORY AND DIAGNOSTIC DATA: WBC 11.1, hemoglobin 14.2, hematocrit 41.4 and platelets 180,000. Sodium 141, potassium 4.0, chloride 107, CO2 20, BUN 18, creatinine 0.6 and glucose 111. Urinalysis showed 1+ protein, 1+ ketones, 3+ occult blood, nitrite positive, 1+ bilirubin, 1+ leukocyte esterase and wbc's 5 to 10. ASSESSMENT: This is a 52-year-old white female 1. Urinary tract infection. 2. Seizure. 3. Cerebrovascular disease. 4. Left hemiparesis. 5. Bipolar depression. 6. Chronic obstructive pulmonary disease. 7. Osteoporosis. TREATMENT: 1. Urinary tract infection. The patient has been started empirically on intravenous Levaquin. A urine culture is pending. We will await ID and sensitivity from urine culture as above. 2. Seizure disorder. The patient has been restarted on Dilantin and Depakote. A Neurology consultation has been obtained with Dr. Malachi Stoll. We will follow recommendation of Neurology. 3. Cerebrovascular disease. The patient is status post cerebrovascular accident. A physical therapy and occupational therapy consultation is pending. 4. Left hemiparesis as above. Physical therapy and occupational therapy consultation has been obtained. A Neurology consultation has been obtained with Dr. Malachi Stoll. 5. Bipolar depression. Continue Geodon as above. A Psychiatric consultation has been obtained with Dr. Andersen. 6. Chronic obstructive pulmonary disease. The patient will be offered albuterol nebulized q.4 h. p.r.n. 7. Osteoporosis. Continue Fosamax as above. Benjamin Crook M.D. DR: BESS JOB#: [id number] CC:
[2017-10-16] VITALS: BP 107/78
[2017-10-16 04:00] VITALS: BP 95/63
[2017-10-16] MEDS: Morphine Sulfate 2mg/ml Inj(IV/IM USE ONLY) IVP PRN ×4 (04:22→20:58)
[2017-10-16 06:47] LABS: HEMATOCRIT 39.6 % (37.0-47.0); HEMOGLOBIN 13.6 G/DL (12.0-16.0); MEAN CORPUSCULAR VOLUME 93 FL (80-99); PLATELET COUNT 241 K/UL (150-450); RED BLOOD COUNT 4.24 M/UL (4.20-5.40); WHITE BLOOD COUNT 10.7 K/UL (4.8-10.8)
[2017-10-16 07:00] LABS: ANION GAP 12 mmol/L (5-15); BLOOD UREA NITROGEN 17 mg/dL (7-18); CARBON DIOXIDE 23 MMOL/L (21-32); CHLORIDE 107 MMOL/L (98-107); CREATININE 0.9 MG/DL (0.55-1.30); POTASSIUM 3.7 MMOL/L (3.5-5.1); SODIUM 142 MMOL/L (136-145)
[2017-10-16 08:00] VITALS: BP 100/69
[2017-10-16] MEDS: Ziprasidone 20mg cap ORAL SCH ×2 (08:50→17:13)
[2017-10-16] MEDS: Heparin 5000 units/ml inj SUBQ SCH ×2 (08:53→20:46)
[2017-10-16] MEDS ORDERED: DILANTIN100 MG ORAL (09:02)
[2017-10-16] MEDS ORDERED: DEPAKOTE250 MG ORAL (09:02)
--- NOTE | 2017-10-16 09:04 | Pulmonology Progress Note ---
Assessment/Plan Problems: (1) Acute encephalopathy (2) Seizure (3) UTI (urinary tract infection) (4) History of asthma (5) Hepatitis C (6) Left hemiparesis (7) Bipolar disorder Assessment/Plan all noted Neuro consult reviewed Pt meds are adjusted now prescription written pt wants to go home Subjective ROS Limited/Unobtainable: No Constitutional: Reports: no symptoms HEENT: Repors: no symptoms Allergies: Coded Allergies: No Known Allergies (Verified Allergy, Unknown, 05/09/08) Objective Last 24 Hour Vital Signs Date Time Temp Pulse Resp B/P (MAP) Pulse Ox O2 Delivery O2 Flow Rate FiO2 10/16/17 08:00 98.4 99 18 100/69 (79) 94 98.4 10/16/17 04:00 97.7 105 18 95/63 (74) 96 97.7 10/16/17 03:49 102 10/16/17 00:00 97.2 114 18 107/78 (88) 96 97.2 10/15/17 23:44 99 10/15/17 21:00 Room Air 10/15/17 20:00 96 10/15/17 20:00 97.9 94 20 108/76 (87) 99 97.9 10/15/17 16:00 104 10/15/17 16:00 97.7 98 18 105/72 (83) 97 97.7 10/15/17 12:00 98.2 103 18 106/69 (81) 96 98.2 10/15/17 12:00 94 Intake and Output 10/15/17 10/16/17 19:00 07:00 Intake Total 360 ml Balance 360 ml Intake Oral 360 ml # Voids 2 7 General Appearance: WD/WN HEENT: normocephalic, atraumatic Respiratory/Chest: chest wall non-tender, lungs clear Cardiovascular: normal peripheral pulses, normal rate Abdomen: normal bowel sounds, soft, non tender Genitourinary: normal external genitalia Skin: no rash Laboratory Tests 10/15/17 13:30: Urine Color Yellow, Urine Appearance Cloudy, Urine pH 5, Urine Specific [place] 1.020, Urine Protein 1+H, Urine Glucose (UA) Negative, Urine Ketones 1+H, Urine Occult Blood 3+H, Urine Nitrite PositiveH, Urine Bilirubin 1+H, Urine Ictotest Negative, Urine Urobilinogen 1H, Urine Leukocyte Esterase 1+H, Urine RBC 2-4H, Urine WBC 5-10H, Urine Squamous Epithelial Cells Few, Urine Bacteria ManyH 10/16/17 06:25: White Blood Count 10.7, Red Blood Count 4.24, Hemoglobin 13.6, Hematocrit 39.6, Mean Corpuscular Volume 93, Mean Corpuscular Hemoglobin 32.1H, Mean Corpuscular Hemoglobin Concent 34.4, Red Cell Distribution Width 12.0, Platelet Count 241, Mean Platelet Volume 7.1, Neutrophils (%) (Auto) , Lymphocytes (%) (Auto) , Monocytes (%) (Auto) , Eosinophils (%) (Auto) , Basophils (%) (Auto) , Differential Total Cells Counted 100, Neutrophils % (Manual) 29L, Lymphocytes % (Manual) 67H, Monocytes % (Manual) 4, Eosinophils % (Manual) 0, Basophils % ( Manual) 0, Band Neutrophils 0, Platelet Estimate Adequate, Platelet Morphology Normal, Red Blood Cell Morphology Normal, Sodium Level 142, Potassium Level 3.7 , Chloride Level 107, Carbon Dioxide Level 23, Anion Gap 12, Blood Urea Nitrogen 17, Creatinine 0.9, Estimat Glomerular Filtration Rate > 60, Glucose Level 68L, Calcium Level 9.0, Phenytoin (Dilantin) Level 17.9 Current Medications Medications (Trade) Dose Ordered Sig/Patricia Route PRN Reason Start Time Stop Time Status Last Admin Dose Admin Acetaminophen (Tylenol) 650 mg Q4H PRN ORAL fever 10/14/17 19:15 11/13/17 19:14 10/15/17 14:44 Al Hydroxide/Mg Hydroxide (Mylanta II) 30 ml Q6H PRN ORAL dyspepsia 10/14/17 19:15 11/13/17 19:14 Clonazepam (KlonoPIN) 1 mg BID ORAL 10/15/17 09:00 10/22/17 08:59 10/16/17 08:50 Clonidine HCl (Catapres Tab) 0.1 mg Q4H PRN ORAL For High Blood Pressure 10/15/17 11:15 11/14/17 11:14 Dextrose (Dextrose 50%) STAT PRN IV Hypoglycemia 10/14/17 19:15 11/13/17 19:14 Divalproex Sodium (Depakote) 750 mg EVERY 12 HOURS ORAL 10/15/17 21:00 11/14/17 20:59 10/16/17 08:49 Heparin Sodium (Porcine) (Heparin 5000 units/ml) 5,000 units EVERY 12 HOURS SUBQ 10/14/17 21:00 11/13/17 20:59 10/16/17 08:53 Levofloxacin 100 ml @ 100 mls/hr Q24H IVPB 10/15/17 17:30 10/22/17 17:29 10/15/17 17:31 Lorazepam (Ativan 2mg/ml 1ml) 2 mg EVERY HOUR PRN IV seizures 10/14/17 19:15 10/21/17 19:14 Morphine Sulfate (Morphine Sulfate) 1 mg Q4H PRN IVP For Pain 10/14/17 19:15 10/21/17 19:14 10/16/17 04:22 Ondansetron HCl (Zofran) 4 mg Q6H PRN IVP Nausea & Vomiting 10/14/17 19:15 11/13/17 19:14 Phenazopyridine HCl (Pyridium) 100 mg THREE TIMES A DAY ORAL 10/15/17 13:00 11/14/17 12:59 10/16/17 08:51 Phenytoin (Dilantin) 300 mg QHS ORAL 10/14/17 21:00 11/13/17 20:59 10/15/17 21:33 Polyethylene Glycol (Miralax) 17 gm HSPRN PRN ORAL Constipation 10/14/17 19:15 11/13/17 19:14 Ziprasidone (Geodon) 80 mg TWICE A DAY ORAL 10/15/17 18:00 11/14/17 17:59 10/16/17 08:50 Zolpidem Tartrate (Ambien) 5 mg HSPRN PRN ORAL Insomnia 10/14/17 19:15 10/21/17 19:14 10/15/17 23:53 Kylee Holley MD Oct 16, 2017 09:04
[2017-10-16] MEDS ORDERED: Tubing IV Secondary IV ONE (10:52)
[2017-10-16 12:00] VITALS: BP 126/67
--- NOTE | 2017-10-16 14:34 | Neurology Progress Note ---
Interim History Interim History Interim History Ms. Chowdary feels better. She has been seizure free. The mind is clear. The strength is at her baseline. She has not noted any new neurologic symptoms. She is eager to go home. Review of Systems Neuro Review of Systems Benign. Objective Physical Exam Last Vital Signs Date Time Temp Pulse Resp B/P (MAP) Pulse Ox O2 Delivery O2 Flow Rate FiO2 10/16/17 12:00 98.6 114 20 126/67 (86) 96 98.6 10/16/17 09:00 Room Air Laboratory Tests Test 10/16/17 06:25 White Blood Count 10.7 K/UL (4.8-10.8) Red Blood Count 4.24 M/UL (4.20-5.40) Hemoglobin 13.6 G/DL (12.0-16.0) Hematocrit 39.6 % (37.0-47.0) Mean Corpuscular Volume 93 FL (80-99) Mean Corpuscular Hemoglobin 32.1 PG (27.0-31.0) H Mean Corpuscular Hemoglobin Concent 34.4 G/DL (32.0-36.0) Red Cell Distribution Width 12.0 % (11.6-14.8) Platelet Count 241 K/UL (150-450) Mean Platelet Volume 7.1 FL (6.5-10.1) Neutrophils (%) (Auto) % (45.0-75.0) Lymphocytes (%) (Auto) % (20.0-45.0) Monocytes (%) (Auto) % (1.0-10.0) Eosinophils (%) (Auto) % (0.0-3.0) Basophils (%) (Auto) % (0.0-2.0) Differential Total Cells Counted 100 Neutrophils % (Manual) 29 % (45-75) L Lymphocytes % (Manual) 67 % (20-45) H Monocytes % (Manual) 4 % (1-10) Eosinophils % (Manual) 0 % (0-3) Basophils % (Manual) 0 % (0-2) Band Neutrophils 0 % (0-8) Platelet Estimate Adequate Platelet Morphology Normal Red Blood Cell Morphology Normal Sodium Level 142 MMOL/L (136-145) Potassium Level 3.7 MMOL/L (3.5-5.1) Chloride Level 107 MMOL/L (98-107) Carbon Dioxide Level 23 MMOL/L (21-32) Anion Gap 12 mmol/L (5-15) Blood Urea Nitrogen 17 mg/dL (7-18) Creatinine 0.9 MG/DL (0.55-1.30) Estimat Glomerular Filtration Rate > 60 mL/min (>60) Glucose Level 68 MG/DL (74-106) L Calcium Level 9.0 MG/DL (8.5-10.1) Phenytoin (Dilantin) Level 17.9 ug/mL (10-20) Neurologic Exam Objective PHYSICAL EXAMINATION: GENERAL: She is a well-developed, well-nourished, pleasant lady, lying in bed, in no acute distress. HEAD: Normocephalic and atraumatic. NECK: No neck rigidity was observed. EENT: Examination benign. NEUROLOGICAL EXAMINATION: MENTAL STATUS EXAMINATION: She was awake and alert. She was oriented to person, place, and time. She was able to recall 3/3 words immediately, but could only remember 2/3 words in 1 minute and 3 minutes even on the second trial. She was able to remember presidents, Trump and Obama, but could not remember presidents prior to that. Her mathematical skills were impaired. Her visuospatial function was also impaired. SPEECH: She had mild dysarthria. LANGUAGE: She had anomia for low-frequency words. CRANIAL NERVE EXAMINATION: II: The visual barr were intact to confrontation testing. III, IV, : External ocular movements were full and the pupils 3 mm in diameter, equal, round, regular, and reactive to light. V: She had normal facial sensations and the temporales, masseters, and pterygoids functioned normally. VII: She had left VII central facial paresis. VIII: She was able to hear and had no nystagmus. IX: The palate moved symmetrically on phonation. X: She had no hoarseness of voice. XI: The sternocleidomastoids and trapezii functioned normally. XII: The tongue was in the midline without any fasciculations or atrophy. MOTOR SYSTEM: The tone was increased on the left side with a significant degree of spasticity involving the upper extremity more than lower extremity. Examination of muscle mass revealed wasting of the left upper and lower extremities and she had her left upper extremity in a flexion contracture. Examination of power revealed G 5/5 power on the right side. On the left side, she had G 0/5 power in the finger flexors and finger extensors, G 2/5 in the wrist extensors and wrist flexors, G 5-/5 in the elbow flexors and elbow extensors, G 4+/5 in the left deltoid, G 4-/5 in the left iliopsoas, and G 4++/ 5 in the toe extensors on the left. SENSORY EXAMINATION: She had intact sensations to pinprick, light touch, and graphesthesia. COORDINATION: She performed well on iztxjv-[id number]-edrs and ydhc-ot-egkt testing on the right side. On the left side, she was unable to perform lbmjon-ag-zzjr testing and the xzis-ju-jsby testing was clumsy. REFLEXES: 2+ on the right and 3+ on the left in the biceps, triceps, brachioradialis, and knees; zero at both ankles. The plantar response was flexor on the right and extensor on the left. STANCE: She stood up independently. GAIT: She walked independently with a left hemiparetic gait. Impression/Recommendations Diagnostic Impression 1. Ms. Sandie Chowdary is a 52-year-old, right-handed, lady, with past history of bipolar affective disorder, stroke with left-sided paresis, poststroke seizure disorder, polysubstance abuse, and prior urinary tract infections, who stopped taking antiseizure medicine about a year ago because she had no seizures for quite sometime and then on 10/14/17 had a flurry of seizures. 2. She feels better. She has been seizure free. The mind is clear. The strength is at her baseline. She has not noted any new neurologic symptoms. She is eager to go home. 3. On neurological examination, at this time, she does demonstrate significant problems with recent and remote memory, visuospatial function, higher cognitive function, and language. She also has a left hemiparesis involving the face and upper extremity more than the lower extremity. Her deep tendon reflexes are brisker on the left side compared to the right. She has an extensor plantar response on the left side. In addition, she walks with left hemiparetic gait. 4. Her last CT scan of the brain performed at [facility] was on , and revealed an old right frontal and basal ganglion infarct. 5. Her laboratory data on admission revealed that her WBC count was elevated to 11,100, but the rest of her CBC was benign. The chemistry panel revealed a glucose at 111 and an alkaline phosphatase at 35, but the rest of the chemistry panel was also benign. The urine toxicology screen revealed that she had a positive screen for cannabinol. Her Dilantin and Depakote levels were nonmeasurable. Her urinalysis from 10/15/2017, revealed 1+ leukocyte esterase, 2-4 RBCs, and 5-10 WBCs with many bacteria in the urine. 6. The EEG done on 10/15/17 was normal. 7. The patient's history, neurological examination, laboratory data, and imaging studies are most compatible with breakthrough seizures due to discontinuation of her antiseizure medicine and possibly the acute urinary tract infection and the use of cannabinols. 8. The risk of the patient having recurrent seizures is high if she does not use antiseizure medicines. Recommendations 1. The patient was again given an explanation of the above-mentioned findings. 2. She was again made aware that she needed to take her antiseizure medicines for the rest of her life. 3. She was instructed on the details of seizure hygiene. 4. Dilantin 300 mg q HS. 5. Depakote 750 mg q 12 hours. 6. The patient's urinary tract infection should be treated appropriately. 7. Follow up with neurologist of choice in 6-8 weeks if discharged. Patricia Stoll M.D., M.S.P.H. PATRICIA STOLL Oct 16, 2017 14:34
--- NOTE | 2017-10-16 14:36 | Cardiac Electrophysiology PN ---
Assessment/Plan Assessment/Plan 1. Hypertension. On p.r.n. clonidine. 2. Status post seizure versus syncope, likely seizure, Dilantin level was low. The patient is on Dilantin currently. Echo pending 3. History of tracheostomy that has been closed. Subjective Subjective No CP or SOB. Objective Last 24 Hour Vital Signs Date Time Temp Pulse Resp B/P (MAP) Pulse Ox O2 Delivery O2 Flow Rate FiO2 10/16/17 12:00 98.6 114 20 126/67 (86) 96 98.6 10/16/17 11:59 104 10/16/17 09:57 98.4 10/16/17 09:27 98.4 10/16/17 09:00 Room Air 10/16/17 08:03 114 10/16/17 08:00 98.4 99 18 100/69 (79) 94 98.4 10/16/17 04:00 97.7 105 18 95/63 (74) 96 97.7 10/16/17 03:49 102 10/16/17 00:00 97.2 114 18 107/78 (88) 96 97.2 10/15/17 23:44 99 10/15/17 21:00 Room Air 10/15/17 20:00 96 10/15/17 20:00 97.9 94 20 108/76 (87) 99 97.9 10/15/17 16:00 104 10/15/17 16:00 97.7 98 18 105/72 (83) 97 97.7 Intake and Output 10/15/17 10/16/17 19:00 07:00 Intake Total 360 ml Balance 360 ml Intake Oral 360 ml # Voids 2 7 Laboratory Tests Test 10/16/17 06:25 White Blood Count 10.7 K/UL (4.8-10.8) Red Blood Count 4.24 M/UL (4.20-5.40) Hemoglobin 13.6 G/DL (12.0-16.0) Hematocrit 39.6 % (37.0-47.0) Mean Corpuscular Volume 93 FL (80-99) Mean Corpuscular Hemoglobin 32.1 PG (27.0-31.0) H Mean Corpuscular Hemoglobin Concent 34.4 G/DL (32.0-36.0) Red Cell Distribution Width 12.0 % (11.6-14.8) Platelet Count 241 K/UL (150-450) Mean Platelet Volume 7.1 FL (6.5-10.1) Neutrophils (%) (Auto) % (45.0-75.0) Lymphocytes (%) (Auto) % (20.0-45.0) Monocytes (%) (Auto) % (1.0-10.0) Eosinophils (%) (Auto) % (0.0-3.0) Basophils (%) (Auto) % (0.0-2.0) Differential Total Cells Counted 100 Neutrophils % (Manual) 29 % (45-75) L Lymphocytes % (Manual) 67 % (20-45) H Monocytes % (Manual) 4 % (1-10) Eosinophils % (Manual) 0 % (0-3) Basophils % (Manual) 0 % (0-2) Band Neutrophils 0 % (0-8) Platelet Estimate Adequate Platelet Morphology Normal Red Blood Cell Morphology Normal Sodium Level 142 MMOL/L (136-145) Potassium Level 3.7 MMOL/L (3.5-5.1) Chloride Level 107 MMOL/L (98-107) Carbon Dioxide Level 23 MMOL/L (21-32) Anion Gap 12 mmol/L (5-15) Blood Urea Nitrogen 17 mg/dL (7-18) Creatinine 0.9 MG/DL (0.55-1.30) Estimat Glomerular Filtration Rate > 60 mL/min (>60) Glucose Level 68 MG/DL (74-106) L Calcium Level 9.0 MG/DL (8.5-10.1) Phenytoin (Dilantin) Level 17.9 ug/mL (10-20) Objective HEAD AND NECK: No JVD. LUNGS: Clear. CARDIOVASCULAR: Regular S1 and S2 with no gallop or murmur. ABDOMEN: Soft. EXTREMITIES: No pitting edema. Hugh Chapman MD Oct 16, 2017 14:36
--- NOTE | 2017-10-16 15:33 | Internal Med Progress Note ---
Subjective Date of Service: Oct 16, 2017 Physician Name Benjamin Crook Attending Physician Esvin Patino MD Current Medications Medications (Trade) Dose Ordered Sig/Patricia Route PRN Reason Start Time Stop Time Status Last Admin Dose Admin Acetaminophen (Tylenol) 650 mg Q4H PRN ORAL fever 10/14/17 19:15 11/13/17 19:14 10/15/17 14:44 Al Hydroxide/Mg Hydroxide (Mylanta II) 30 ml Q6H PRN ORAL dyspepsia 10/14/17 19:15 11/13/17 19:14 Clonazepam (KlonoPIN) 1 mg BID ORAL 10/15/17 09:00 10/22/17 08:59 10/16/17 08:50 Clonidine HCl (Catapres Tab) 0.1 mg Q4H PRN ORAL For High Blood Pressure 10/15/17 11:15 11/14/17 11:14 Dextrose (Dextrose 50%) STAT PRN IV Hypoglycemia 10/14/17 19:15 11/13/17 19:14 Divalproex Sodium (Depakote) 750 mg EVERY 12 HOURS ORAL 10/15/17 21:00 11/14/17 20:59 10/16/17 08:49 Heparin Sodium (Porcine) (Heparin 5000 units/ml) 5,000 units EVERY 12 HOURS SUBQ 10/14/17 21:00 11/13/17 20:59 10/16/17 08:53 Levofloxacin 50 ml @ 50 mls/hr Q24H IVPB 10/16/17 17:30 10/23/17 17:29 Lorazepam (Ativan 2mg/ml 1ml) 2 mg EVERY HOUR PRN IV seizures 10/14/17 19:15 10/21/17 19:14 Morphine Sulfate (Morphine Sulfate) 1 mg Q4H PRN IVP For Pain 10/14/17 19:15 10/21/17 19:14 10/16/17 14:10 Ondansetron HCl (Zofran) 4 mg Q6H PRN IVP Nausea & Vomiting 10/14/17 19:15 11/13/17 19:14 Phenazopyridine HCl (Pyridium) 100 mg THREE TIMES A DAY ORAL 10/15/17 13:00 11/14/17 12:59 10/16/17 13:32 Phenytoin (Dilantin) 300 mg QHS ORAL 10/14/17 21:00 11/13/17 20:59 10/15/17 21:33 Polyethylene Glycol (Miralax) 17 gm HSPRN PRN ORAL Constipation 10/14/17 19:15 11/13/17 19:14 Ziprasidone (Geodon) 80 mg TWICE A DAY ORAL 10/15/17 18:00 11/14/17 17:59 10/16/17 08:50 Zolpidem Tartrate (Ambien) 5 mg HSPRN PRN ORAL Insomnia 10/14/17 19:15 10/21/17 19:14 10/15/17 23:53 Allergies: Coded Allergies: No Known Allergies (Verified Allergy, Unknown, 05/09/08) ROS Limited/Unobtainable: No Constitutional: Reports: no symptoms HEENT: Reports: no symptoms Cardiovascular: Reports: no symptoms Respiratory: Reports: no symptoms Gastrointestinal/Abdominal: Reports: no symptoms Genitourinary: Reports: no symptoms Neurologic/Psychiatric: Reports: no symptoms Subjective 52 YO F admitted with seizure. Now UTI. Cover for [facility] Patino. No new seizure overnight Objective Last Vital Signs Date Time Temp Pulse Resp B/P (MAP) Pulse Ox O2 Delivery O2 Flow Rate FiO2 10/16/17 12:00 98.6 114 20 126/67 (86) 96 98.6 10/16/17 09:00 Room Air General Appearance: WD/WN, no apparent distress, alert EENT: PERRL/EOMI, normal ENT inspection Neck: non-tender, normal alignment, supple, normal inspection Cardiovascular: normal peripheral pulses, normal rate, regular rhythm, no gallop/murmur, no JVD Respiratory/Chest: chest wall non-tender, lungs clear, normal breath sounds, no respiratory distress, no accessory muscle use Abdomen: normal bowel sounds, non tender, soft, no organomegaly, no mass Extremities: normal range of motion, non-tender Neurologic: auto parker II-XII grossly normal, abnormal gait, alert, motor weakness - left Laboratory Tests Test 10/16/17 06:25 White Blood Count 10.7 K/UL (4.8-10.8) Red Blood Count 4.24 M/UL (4.20-5.40) Hemoglobin 13.6 G/DL (12.0-16.0) Hematocrit 39.6 % (37.0-47.0) Mean Corpuscular Volume 93 FL (80-99) Mean Corpuscular Hemoglobin 32.1 PG (27.0-31.0) H Mean Corpuscular Hemoglobin Concent 34.4 G/DL (32.0-36.0) Red Cell Distribution Width 12.0 % (11.6-14.8) Platelet Count 241 K/UL (150-450) Mean Platelet Volume 7.1 FL (6.5-10.1) Neutrophils (%) (Auto) % (45.0-75.0) Lymphocytes (%) (Auto) % (20.0-45.0) Monocytes (%) (Auto) % (1.0-10.0) Eosinophils (%) (Auto) % (0.0-3.0) Basophils (%) (Auto) % (0.0-2.0) Differential Total Cells Counted 100 Neutrophils % (Manual) 29 % (45-75) L Lymphocytes % (Manual) 67 % (20-45) H Monocytes % (Manual) 4 % (1-10) Eosinophils % (Manual) 0 % (0-3) Basophils % (Manual) 0 % (0-2) Band Neutrophils 0 % (0-8) Platelet Estimate Adequate Platelet Morphology Normal Red Blood Cell Morphology Normal Sodium Level 142 MMOL/L (136-145) Potassium Level 3.7 MMOL/L (3.5-5.1) Chloride Level 107 MMOL/L (98-107) Carbon Dioxide Level 23 MMOL/L (21-32) Anion Gap 12 mmol/L (5-15) Blood Urea Nitrogen 17 mg/dL (7-18) Creatinine 0.9 MG/DL (0.55-1.30) Estimat Glomerular Filtration Rate > 60 mL/min (>60) Glucose Level 68 MG/DL (74-106) L Calcium Level 9.0 MG/DL (8.5-10.1) Phenytoin (Dilantin) Level 17.9 ug/mL (10-20) Intake and Output 10/15/17 10/16/17 19:00 07:00 Intake Total 360 ml Balance 360 ml Intake Oral 360 ml # Voids 2 7 Assessment/Plan Problem List: (1) COPD (chronic obstructive pulmonary disease) Assessment & Plan: See pulmonary note. (2) Osteoporosis (3) UTI (lower urinary tract infection) Assessment & Plan: Await urine cult and sensitivity result. Cont levaquin for now (4) Seizure Assessment & Plan: Restart dilantin and depakote. See neurology note. (5) Left hemiplegia Status: progressing Benjamin Crook MD Oct 16, 2017 15:33
[2017-10-16 16:00] VITALS: BP 113/83
[2017-10-16] MEDS ORDERED: Levofloxacin 250mg/D5W 50ml IVPB SCH (17:30)
--- NOTE | 2017-10-16 19:15 | Electroencephalogram ---
DATE OF PROCEDURE: 10/15/2017 REQUESTING PHYSICIAN: Esvin Patino M.D. READING PHYSICIAN: Malachi Stoll M.D. HISTORY: This EEG was performed on a 52-year-old lady with a history of bipolar affective disorder, a stroke associated with left-sided weakness, polysubstance use, and seizures. The purpose of this EEG was to better delineate the type of seizure disorder. TECHNICAL NOTE: This EEG was performed on a [employer] with electrodes placed on the scalp according to the International 10-20 system. [id number] and [id number] montages were used. The EEG was technically satisfactory and was performed in the awake, drowsy, and sleep states. OBSERVATIONS: In the best awake state, the background activity consisted of 9-10 Hz posteriorly predominant well-developed alpha waveforms, which attenuated an eye opening. Drowsiness was characterized by dissolution of the alpha rhythm and appearance of slower frequencies in the 5-6 Hz theta range. Stage II sleep was characterized by further slowing of the background in the delta and theta range, the presence of vertex waves, and 14 Hz sleep spindles. Photic stimulation was performed at various different frequencies and produced no abnormalities. No focal abnormalities or epileptiform discharges were seen. IMPRESSION: Normal awake, drowsy, and stage II sleep EEG. COMMENT: Normal EEG does not rule out a seizure disorder. Malachi Stoll M.D., M.S.P.H. DR: LEANNA JOB#: [id number] [facility]ITALNury
[2017-10-16 20:00] VITALS: BP 107/76
[2017-10-16] MEDS: Phenytoin 100mg cap ORAL SCH (20:46)
[2017-10-17] VITALS: BP 103/67
[2017-10-17 04:00] VITALS: BP 115/69
[2017-10-17 07:16] LABS: HEMATOCRIT 37.1 % (37.0-47.0); HEMOGLOBIN 12.5 G/DL (12.0-16.0); MEAN CORPUSCULAR VOLUME 94 FL (80-99); PLATELET COUNT 198 K/UL (150-450); RED BLOOD COUNT 3.95 M/UL (4.20-5.40); RED CELL DISTRIBUTION WIDTH 12.1 % (11.6-14.8); WHITE BLOOD COUNT 7.5 K/UL (4.8-10.8)
[2017-10-17 07:21] LABS: ANION GAP 11 mmol/L (5-15); BLOOD UREA NITROGEN 22 mg/dL (7-18); CALCIUM 8.6 MG/DL (8.5-10.1); CARBON DIOXIDE 25 MMOL/L (21-32); CHLORIDE 108 MMOL/L (98-107); CREATININE 0.8 MG/DL (0.55-1.30); POTASSIUM 3.4 MMOL/L (3.5-5.1); SODIUM 144 MMOL/L (136-145)
[2017-10-17 08:00] VITALS: BP 118/67
[2017-10-17] MEDS: Ziprasidone 20mg cap ORAL SCH (08:29)
[2017-10-17] MEDS: Morphine Sulfate 2mg/ml Inj(IV/IM USE ONLY) IVP PRN (08:34)
[2017-10-17] MEDS: Heparin 5000 units/ml inj SUBQ SCH (08:35)
--- NOTE | 2017-10-17 12:42 | Internal Med Progress Note ---
Subjective Date of Service: Oct 17, 2017 Physician Name Benjamin Crook Attending Physician Esvin Patino MD Allergies: Coded Allergies: No Known Allergies (Verified Allergy, Unknown, 05/09/08) ROS Limited/Unobtainable: No Constitutional: Reports: no symptoms HEENT: Reports: no symptoms Cardiovascular: Reports: no symptoms Respiratory: Reports: no symptoms Gastrointestinal/Abdominal: Reports: no symptoms Genitourinary: Reports: no symptoms Neurologic/Psychiatric: Reports: no symptoms Subjective 52 YO F admitted with seizure. Now UTI. Cover for [facility] Med-Dr Patino. No new seizure overnight Objective Last Vital Signs Date Time Temp Pulse Resp B/P (MAP) Pulse Ox O2 Delivery O2 Flow Rate FiO2 10/17/17 09:00 Room Air 10/17/17 08:00 97.5 108 20 118/67 (84) 93 97.5 Laboratory Tests Test 10/17/17 06:05 White Blood Count 7.5 K/UL (4.8-10.8) Red Blood Count 3.95 M/UL (4.20-5.40) L Hemoglobin 12.5 G/DL (12.0-16.0) Hematocrit 37.1 % (37.0-47.0) Mean Corpuscular Volume 94 FL (80-99) Mean Corpuscular Hemoglobin 31.7 PG (27.0-31.0) H Mean Corpuscular Hemoglobin Concent 33.7 G/DL (32.0-36.0) Red Cell Distribution Width 12.1 % (11.6-14.8) Platelet Count 198 K/UL (150-450) Mean Platelet Volume 7.2 FL (6.5-10.1) Neutrophils (%) (Auto) % (45.0-75.0) Lymphocytes (%) (Auto) % (20.0-45.0) Monocytes (%) (Auto) % (1.0-10.0) Eosinophils (%) (Auto) % (0.0-3.0) Basophils (%) (Auto) % (0.0-2.0) Differential Total Cells Counted 100 Neutrophils % (Manual) 27 % (45-75) L Lymphocytes % (Manual) 64 % (20-45) H Monocytes % (Manual) 8 % (1-10) Eosinophils % (Manual) 1 % (0-3) Basophils % (Manual) 0 % (0-2) Band Neutrophils 0 % (0-8) Platelet Estimate Adequate Platelet Morphology Normal Red Blood Cell Morphology Normal Sodium Level 144 MMOL/L (136-145) Potassium Level 3.4 MMOL/L (3.5-5.1) L Chloride Level 108 MMOL/L (98-107) H Carbon Dioxide Level 25 MMOL/L (21-32) Anion Gap 11 mmol/L (5-15) Blood Urea Nitrogen 22 mg/dL (7-18) H Creatinine 0.8 MG/DL (0.55-1.30) Estimat Glomerular Filtration Rate > 60 mL/min (>60) Glucose Level 84 MG/DL (74-106) Calcium Level 8.6 MG/DL (8.5-10.1) Phenytoin (Dilantin) Level 15.8 ug/mL (10-20) Valproic Acid (Depakene) Level 93 MCG/ML (50-100) Microbiology Date/Time Source Procedure Growth Status 10/15/17 13:30 Urine,Clean Catch Urine Culture - Preliminary Gram Negative Bacillus 1 Resulted Intake and Output 10/16/17 10/17/17 19:00 07:00 Intake Total 290 ml Balance 290 ml Intake Oral 240 ml IV Total 50 ml # Voids 4 3 Objective General Appearance: WD/WN, no apparent distress, alert EENT: PERRL/EOMI, normal ENT inspection Neck: non-tender, normal alignment, supple, normal inspection Cardiovascular: normal peripheral pulses, normal rate, regular rhythm, no gallop/murmur, no JVD Respiratory/Chest: chest wall non-tender, lungs clear, normal breath sounds, no respiratory distress, no accessory muscle use Abdomen: normal bowel sounds, non tender, soft, no organomegaly, no mass Extremities: normal range of motion, non-tender Neurologic: placement specialist II-XII grossly normal, abnormal gait, alert, motor weakness - left Assessment/Plan Problem List: (1) COPD (chronic obstructive pulmonary disease) Assessment & Plan: See pulmonary note. (2) Osteoporosis (3) UTI (lower urinary tract infection) Assessment & Plan: Await urine cult and sensitivity result. Cont levaquin for now (4) Seizure Assessment & Plan: Restart dilantin and depakote. See neurology note. (5) Left hemiplegia Status: stable Assessment/Plan Discharge home today Benjamin Crook MD Oct 17, 2017 12:42
--- NOTE | 2017-10-17 14:09 | Cardiology Report ---
APPROVED REPORT EXAM: Two-dimensional and M-mode echocardiogram with Doppler and color Doppler. INDICATION Chest Pain M-Mode DIMENSIONS IVSd2.2 (0.7-1.1cm)Left Atrium (MM)2.8 (1.6-4.0cm) LVDd3.8 (3.5-5.6cm)Aortic Root3.4 (2.0-3.7cm) PWd0.8 (0.7-1.1cm)Aortic Cusp Exc.1.9 (1.5-2.0cm) LVDs1.6 (2.5-4.0cm) PWs1.0 cm Technically difficult study due to poor acoustical windows. Normal left ventricular chamber size, systolic function and wall motion to extent visualized. Left ventricular ejection fraction estimated to be 65 %. Mild left ventricular hypertrophy. Anterior Echo-free space, may be due to pericardial fat or effusion. All other cardiac chamber sizes are within normal limits. Mild focal aortic valve sclerosis with adequate cusp excursion. Mildly thickened mitral valve leaflets with normal excursion. Mitral annulus and aortic root calcification. Pulmonic valve not well visualized. Normal tricuspid valve structure. IVC at normal size with physiologic collapse. A color flow and spectral Doppler study was performed and revealed: Trace mitral regurgitation. Mitral diastolic velocities suggest reduced left ventricular relaxation c/w mild LV diastolic dysfunction (Grade I ). Mild tricuspid regurgitation. Tricuspid systolic velocities suggests peak right ventricular systolic pressure of 38 mmHg, consistent with mild pulmonary hypertension. Trace pulmonic regurgitation present.
--- NOTE | 2017-10-17 14:27 | Cardiology Report ---
APPROVED REPORT EKG Measurement Heart [id number] Sinus rhythm with short LA Biatrial enlargement Rightward axis Pulmonary disease pattern Nonspecific ST abnormality Abnormal ECG
--- NOTE | 2017-10-19 12:18 | Discharge Summary ---
Discharge Summary Discharge Summary _ DATE OF ADMISSION: 10/14/2017 DATE OF DISCHARGE: 10/17/2017 REASON FOR ADMISSION: 51 years old female with past medical history significant for seizure disorder , asthma /COPD, tracheostomy ,status post removal ,hepatitis C, hypertension, history of CVA, bipolar disorder, presented after witnessed seizure lasting approximately 7 minutes. Patient was previously on Dilantin but stopped taking it . Patient was seizure free for several weeks. Patient reported difficulty with urination. Upon evaluation noted leukocytosis WBC 11.1, stable hemoglobin and hematocrit. Stable electrolytes ,renal parameters ,LFT. Initial urinalysis no evidence of UTI. Dilantin level subtherapeutic Urine toxicology screen was positive for marijuana . Patient admitted with diagnosis of breakthrough seizure ,possible UTI ,CVA with left hemiparesis ,COPD /asthma, acute encephalopathy. 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 Chapman neurologist Dr. Pierre pulmonary [facility] COURSE: Patient admitted to telemetry floor. Patient was maintained on seizure precautions. Neurology consult was requested. Patient started on Dilantin and Depakote. Dilantin and Depakote levels therapeutic prior to discharge. No further seizure activity. EEG showed normal awake, drowsy, and stage II sleep EEG. Per neurologist, patient history neurological examination, laboratory data imaging studies , were most consistent with a breakthrough seizure due to discontinuation of antiseizure medication and possibly acute urinary tract infection and use of marijuana. Patient was made aware that she would need to take her antiseizure medication for the rest of her life. Patient was instructed on the details of seizure hygiene Neurologist recommended to follow-up with neurologist of choice in 6-8 weeks after discharge. Salt Miner closely followed. No evidence of arrhythmia on telemetry. Echocardiogram revealed preserved ejection fraction, no wall motion abnormality , right ventricular systolic pressure of 36 consistent with mild pulmonary hypertension. Title Processor closely followed. Supplemental oxygen and pulmonary toilet were on board as needed. Pulse oximetry was stable on room air , no evidence of COPD exacerbation. Respiratory status was stable Patient was working with physical and occupational therapists. Fall precautions maintained. Repeated urinalysis revealed evidence of UTI. Patient started on empiric antibiotic. Fosamax Urine culture revealed Escherichia coli. Acute encephalopathy was likely secondary to breakthrough seizure episode along with acute UTI. Blood pressure was managed with clonidine on as needed basis. Electrolytes were closely monitored and replaced as needed. DVT prophylaxis provided. Bowel regimen instituted. Fosamax continued. Patient was stable for discharge home FINAL DIAGNOSES: Breakthrough seizure with history of seizure disorder secondary to discontinuation of anticonvulsant therapy Acute encephalopathy Escherichia coli UTI COPD/asthma Osteoporosis History of CVA with left hemiparesis Hypertension History of tracheostomy Hepatitis C Bipolar disorder DISCHARGE MEDICATIONS: See Medication Reconciliation list. DISCHARGE INSTRUCTIONS: Patient was discharged home with home health services referral Follow-up with the primary care provider in one week . Follow-up with neurologist of choice in 6-8 weeks. I have been assigned to dictate discharge summary for this account. I was not involved in the patient's management. Barbara Lam NP Oct 19, 2017 12:18
== END 2017-10-17 12:19 | disposition home health service (06) | DRG 100 ==
LOC: EMR 17:46 → 2E 18:33 → EDBEDREQ 18:38 → 2E 20:12
DX: G40.909 Epilepsy, unspecified, not intractable, without status epilepticus (principal); G93.40 Encephalopathy, unspecified; I69.354 Hemiplegia and hemiparesis following cerebral infarction affecting left non-dominant side; N39.0 Urinary tract infection, site not specified; F31.9 Bipolar disorder, unspecified; I69.398 Other sequelae of cerebral infarction; M24.50 Contracture, unspecified joint; Z87.891 Personal history of nicotine dependence; J44.9 Chronic obstructive pulmonary disease, unspecified; M81.0 Age-related osteoporosis without current pathological fracture; B96.20 Unspecified Escherichia coli [E. coli] as the cause of diseases classified elsewhere; B19.20 Unspecified viral hepatitis C without hepatic coma; I10 Essential (primary) hypertension; F19.11 Other psychoactive substance abuse, in remission; G51.0 Bell's palsy; Z91.14 Patient's other noncompliance with medication regimen
CPT/HCPCS: 36415; 80048; 80053; 80164; 80185; 80307; 81001; 81003; 85007; 85025; 87086; 87181; 93005; 93306; 95819; J1165; J8499

== ENCOUNTER 2017-10-20 15:01 | Inpatient (IN) | payer MEDICARE, OTHER ==
[~2017-10-20] VITALS: Ht 147.3 cm; Wt 59.0 kg
[~2017-10-20 15:01] MED LIST changes: +BACLOFEN10 MG ORAL; +DEPAKOTE250 MG ORAL; +DILANTIN100 MG ORAL
[2017-10-20 17:48] LABS: BASOPHILS % (AUTO) 1.6 % (0.0-2.0); EOSINOPHILS % (AUTO) 0.1 % (0.0-3.0); HEMATOCRIT 39.5 % (37.0-47.0); HEMOGLOBIN 13.5 G/DL (12.0-16.0); LYMPHOCYTES % (AUTO) 41.2 % (20.0-45.0); MEAN CORPUSCULAR VOLUME 95 FL (80-99); MONOCYTES % (AUTO) 4.5 % (1.0-10.0); NEUTROPHILS % (AUTO) 52.6 % (45.0-75.0); PLATELET COUNT 238 K/UL (150-450); RED BLOOD COUNT 4.17 M/UL (4.20-5.40); RED CELL DISTRIBUTION WIDTH 12.1 % (11.6-14.8); WHITE BLOOD COUNT 10.7 K/UL (4.8-10.8)
[2017-10-20 18:02] LABS: ANION GAP 15 mmol/L (5-15); BLOOD UREA NITROGEN 14 mg/dL (7-18); CALCIUM 9.1 MG/DL (8.5-10.1); CARBON DIOXIDE 23 MMOL/L (21-32); CHLORIDE 102 MMOL/L (98-107); CREATININE 0.7 MG/DL (0.55-1.30); POTASSIUM 3.6 MMOL/L (3.5-5.1); SODIUM 140 MMOL/L (136-145)
[2017-10-20 18:17] LABS: ALANINE AMINOTRANSFERASE 15 U/L (12-78); ALBUMIN 3.9 G/DL (3.4-5.0); ALBUMIN/GLOBULIN RATIO 1.2 (1.0-2.7); ALKALINE PHOSPHATASE 35 U/L (46-116); ASPARTATE AMINO TRANSFERASE 17 U/L (15-37); BILIRUBIN,TOTAL 0.3 MG/DL (0.2-1.0); CKMB 1.6 NG/ML (0.0-3.6); CREATINE KINASE 114 U/L (26-308)
[2017-10-20 18:23] LABS: APPEARANCE,URINE CLEAR; BILIRUBIN, URINE 1+ (NEGATIVE); GLUCOSE, URINE (UA) NEGATIVE (NEGATIVE); KETONES,URINE 2+ (NEGATIVE); LEUKOCYTE ESTERASE ,URINE 1+ (NEGATIVE); NITRITE,URINE NEGATIVE (NEGATIVE); PH,URINE 6 (4.5-8.0); PROTEIN,URINE 2+ (NEGATIVE); UROBILINOGEN,URINE 1 MG/DL (0.0-1.0)
[2017-10-20 18:25] LABS: COLOR,URINE YELLOW
[2017-10-20 18:51] VITALS: BP 131/90
[2017-10-20] MEDS ORDERED: cefTRIAXone 1 GM in NS 55 ML IVPB ONE (19:00)
--- NOTE | 2017-10-20 20:23 | Emergency Room Report ---
History of Present Illness General Chief Complaint: Female Urogenital Problems Source: Patient, Family Member (Masood Herman M.D.) Present Illness HPI 52-year-old female presents to the emergency department complaining of inability to urinate times one day with abdominal bloating. Denies fevers, chills, nausea or vomiting. Patient denies pain she reports she does not have much sensation in the groin area. Denies bowel incontinence Patient reports history of CVA with left-sided residual deficits and arm contracture. Patient states that she feels her hand is more contracted than normal. Patient also reports that she was recently (2 days ago) evaluated for seizures and placed onto Dilantin she denies having any seizures since leaving the hospital. Patient was diagnosed with a UTI. Patient reports that she has quite a few medical problems and does not know the names of all her medications. Denies CP, Palpitations, LOC, AMS, dizziness, Changes in Vision, or a sudden severe headache. Denies trauma or fall. reports hx of scoliosis. HPI and ROS somewhat limited. Pt. denies difficulty ambulating. denies numbness to inner thighs but reports genital area numbness. Responsible libertarian for patient later was at bedside and it was then discussed that the real reason that the patient was brought to the hospital 2 days ago as well as today is due to new onset incontinence. (Teresa Jack) Allergies: Coded Allergies: No Known Allergies (Verified Allergy, Unknown, 05/09/08) Patient History Limited by: other - poor historian Past Medical History: see triage record, old chart reviewed - recent UTI, CVA/ TIA, seizures, psych hx Past Surgical History: none Pertinent Family History: none Now: No Reviewed Nursing Documentation: PMH: Agreed; PSxH: Agreed (Teresa Jack) Past Medical History: see triage record, old chart reviewed (Masood Herman M.D.) Nursing Documentation-PMH Hx Cardiac Problems: Yes Hx Hypertension: Yes Hx Pacemaker: No - TRACHEOSTOMY (RESOLVED), HEP C Hx Asthma: No Hx COPD: Yes Hx Diabetes: No Hx Cancer: No Hx Gastrointestinal Problems: No Hx Dialysis: No Hx Cerebrovascular Accident: Yes - 1991- left side deficit Hx Transient Ischemic Attacks: No Hx Dementia: No Hx Alzheimer's Disease: No Hx Parkinson's Disease: No Hx Meningitis: No Hx Encephalitis: No Hx Seizures: Yes Hx Epilepsy: No Hx Multiple Sclerosis: No Hx Amyotrophic Lat Sclerosis: No Hx [place] Syndrome: No Hx Paralysis: No Hx Peripheral Neuropathy: No Hx Spinal Cord Injury: No Hx Head Trauma: No Hx Traumatic Brain Injury: No Hx Memory Loss: No Hx Concentration Difficulty: Yes Hx Speech Problem: No Hx Tremors: No Hx Vertigo: No Hx Dizziness: Yes Hx Syncope: No Hx Headaches: Yes Hx Aphasia: No Hx Dysphasia: No Hx Numbness: Yes - left lower extremities Hx Weakness: Yes - oleft sided weakness Hx Fatigue: Yes Hx Neurologic Surgery: No Hx Brain Shunt: No (Teresa Jack) Review of Systems All Other Systems: negative except mentioned in HPI (Teresa Jack) Physical Exam Vital Signs Date Time Temp Pulse Resp B/P (MAP) Pulse Ox O2 Delivery O2 Flow Rate FiO2 10/20/17 15:23 98.5 112 18 129/89 95 98.4 10/20/17 18:51 Room Air Sp02 EP Interpretation: reviewed, normal General Appearance: no apparent distress, alert, GCS 15, non-toxic, Chronically Ill - left sided deficit Left UE, with contracture Head: normocephalic, atraumatic Eyes: bilateral eye normal inspection, bilateral eye PERRL ENT: hearing grossly normal, normal voice Neck: full range of motion Respiratory: lungs clear, normal breath sounds, speaking full sentences Cardiovascular #1: regular rate, rhythm, no edema Gastrointestinal: normal bowel sounds, non tender, soft, non-distended, no guarding Rectal: deferred Genitourinary: normal inspection, no CVA tenderness Musculoskeletal: back normal, gait/station normal - ambulatory, normal range of motion, non-tender Neurologic: alert, oriented x3, responsive, speech normal, motor weakness - Left sided-residule from previous CVA, other - decreased sensation in groin, grossly normal Psychiatric: judgement/insight normal Skin: normal color, no rash, warm/dry, well hydrated Lymphatic: no adenopathy (Teresa Jack) Medical Decision Making PA Attestation Dr. Herman is my supervising Physician whom patient management has been discussed with. (Teresa Jack) Diagnostic Impression: Primary Impression: UTI (urinary tract infection) Qualified Codes: N30.00 - Acute cystitis without hematuria Additional Impressions: Incontinence of urine in female Focal seizures Resting tachycardia ER Course 52-year-old female presents to the emergency department complaining of inability to urinate times one day with abdominal bloating. Denies fevers, chills, nausea or vomiting. Patient denies pain she reports she does not have much sensation in the groin area. Denies bowel incontinence Patient reports history of CVA with left-sided residual deficits and arm contracture. Patient states that she feels her hand is more contracted than normal. Patient also reports that she was recently (2 days ago) evaluated for seizures and placed onto Dilantin she denies having any seizures since leaving the hospital. Patient was diagnosed with a UTI. Patient reports that she has quite a few medical problems and does not know the names of all her medications. Denies CP, Palpitations, LOC, AMS, dizziness, Changes in Vision, or a sudden severe headache. Denies trauma or fall. reports hx of scoliosis. HPI and ROS somewhat limited. Pt. denies difficulty ambulating. denies numbness to inner thighs but reports genital area numbness. Responsible libertarian for patient later was at bedside and it was then discussed that the real reason that the patient was brought to the hospital 2 days ago as well as today is due to new onset incontinence. Ddx considered but are not limited to UTi , Cystitis, Neurogenic bladder, Urinary obstruction just to name a few. Vital signs: are WNL, pt. is afebrile H&PE are most consistent with UTI - pt. tachycardic on presentation so septic work-up was initiated. ORDERS: -CBC, CMP, CK: WNL -Troponin: WNL - Blood cultures x 2 : pending -Lactic Acid: WNL - UA labs are attached - positive for infection -Insert Infante- 60cc residual -Dilantin & Valproic Acid: WNL ED INTERVENTIONS: -1 Liter NS -1g Rocephin -[place] PO DISPOSITION: at this time pt. will be admitted to Dr. Patino for UTI and new onset incontinence. Dr. Patino agreed to admit the pt. and to continue pt. care management. Labs Test 10/20/17 17:04 10/20/17 17:15 White Blood Count 10.7 K/UL (4.8-10.8) Red Blood Count 4.17 M/UL (4.20-5.40) Hemoglobin 13.5 G/DL (12.0-16.0) Hematocrit 39.5 % (37.0-47.0) Mean Corpuscular Volume 95 FL (80-99) Mean Corpuscular Hemoglobin 32.5 PG (27.0-31.0) Mean Corpuscular Hemoglobin Concent 34.3 G/DL (32.0-36.0) Red Cell Distribution Width 12.1 % (11.6-14.8) Platelet Count 238 K/UL (150-450) Mean Platelet Volume 7.0 FL (6.5-10.1) Neutrophils (%) (Auto) 52.6 % (45.0-75.0) Lymphocytes (%) (Auto) 41.2 % (20.0-45.0) Monocytes (%) (Auto) 4.5 % (1.0-10.0) Eosinophils (%) (Auto) 0.1 % (0.0-3.0) Basophils (%) (Auto) 1.6 % (0.0-2.0) Sodium Level 140 MMOL/L (136-145) Potassium Level 3.6 MMOL/L (3.5-5.1) Chloride Level 102 MMOL/L (98-107) Carbon Dioxide Level 23 MMOL/L (21-32) Anion Gap 15 mmol/L (5-15) Blood Urea Nitrogen 14 mg/dL (7-18) Creatinine 0.7 MG/DL (0.55-1.30) Estimat Glomerular Filtration Rate > 60 mL/min (>60) Glucose Level 100 MG/DL (74-106) Lactic Acid Level 0.80 mmol/L (0.4-2.0) Calcium Level 9.1 MG/DL (8.5-10.1) Total Bilirubin 0.3 MG/DL (0.2-1.0) Aspartate Amino Transf (AST/SGOT) 17 U/L (15-37) Alanine Aminotransferase (ALT/SGPT) 15 U/L (12-78) Alkaline Phosphatase 35 U/L (46-116) Total Creatine Kinase 114 U/L (26-308) Creatine Kinase MB 1.6 NG/ML (0.0-3.6) Creatine Kinase MB Relative Index 1.4 Troponin I 0.000 ng/mL (0.000-0.056) Total Protein 7.2 G/DL (6.4-8.2) Albumin 3.9 G/DL (3.4-5.0) Globulin 3.3 g/dL Albumin/Globulin Ratio 1.2 (1.0-2.7) Phenytoin (Dilantin) Level 12.7 ug/mL (10-20) Valproic Acid (Depakene) Level 64 MCG/ML (50-100) Urine Color Yellow Urine Appearance Clear Urine pH 6 (4.5-8.0) Urine Specific [place] 1.015 (1.005-1.035) Urine Protein 2+ (NEGATIVE) Urine Glucose (UA) Negative (NEGATIVE) Urine Ketones 2+ (NEGATIVE) Urine Occult Blood 1+ (NEGATIVE) Urine Nitrite Negative (NEGATIVE) Urine Bilirubin 1+ (NEGATIVE) Urine Ictotest Negative (NEGATIVE) Urine Urobilinogen 1 MG/DL (0.0-1.0) Urine Leukocyte Esterase 1+ (NEGATIVE) Urine RBC 2-4 /HPF (0 - 2) Urine WBC 5-10 /HPF (0 - 2) Urine Squamous Epithelial Cells Few /LPF (NONE/OCC) Urine Amorphous Sediment Few /LPF (NONE) Urine Bacteria Few /HPF (NONE) Urine Fine Granular Casts 2-4 /LPF (NONE) Urine Yeast Few /HPF (NONE) (Teresa Jack) ER Course Please see above history. Patient examined and history also given by father. In mid course of Levaquin. Hand with new changes from usual chronic spasticity. During EKG, uncontrolled jerking of L arm. Conscious at time. This resolved spontaneously however increased hand clenching. I agree with above assessment and treatment plan. Concern for focal seizure (tonic L arm, initially had "tremor" which was uncontrolled), incontinence, partially treated UTI. (Masood Herman M.D.) EKG Diagnostic Results EP Interpretation: Dr. Herman Rate: tachycardiac - 103 Rhythm: NSR ST Segments: no acute changes ASA given to the pt in ED: No PA Scribe Text This Interpretation was scribed by NICOLE Jack. (Teresa Jack) Rate: tachycardiac ST Segments: no acute changes (Masood Herman M.D.) Rhythm Strip Diag. Results EP Interpretation: yes Rhythm: no PVC's, no ectopy, other - ST (Masood Herman M.D.) Last Vital Signs Date Time Temp Pulse Resp B/P (MAP) Pulse Ox O2 Delivery O2 Flow Rate FiO2 10/20/17 18:51 96 16 131/90 96 Room Air 10/20/17 15:23 98.5 98.4 (Teresa Jack) Last Vital Signs Date Time Temp Pulse Resp B/P (MAP) Pulse Ox O2 Delivery O2 Flow Rate FiO2 10/21/17 01:16 Room Air 10/21/17 00:00 98.5 104 19 119/83 (95) 94 98.5 Status: improved (Masood Herman M.D.) Disposition: ADMITTED INPATIENT Condition: Serious Referrals: NON PHYSICIAN (PCP) Teresa Jack Oct 20, 2017 20:23 Masood Herman M.D. Oct 21, 2017 01:58
[2017-10-20] MEDS ORDERED: Norco 5mg/325mg tab ORAL ONE (20:45)
[2017-10-20] MEDS ORDERED: Albuterol/Ipratropium 3ml neb HHN PRN (21:15)
[2017-10-20] MEDS ORDERED: Miralax 17gm pkt ORAL PRN (21:15)
[2017-10-20 21:50] VITALS: BP 119/85
[2017-10-20 22:50] VITALS: BP 113/83
[2017-10-20] MEDS ORDERED: Vancomycin 1gm inj IVPB ONE (23:49)
[2017-10-21] VITALS: BP 119/83
[2017-10-21] MEDS: Heparin 5000 units/ml inj SUBQ SCH ×3 (00:02→20:34)
[2017-10-21] MEDS ORDERED: Vancomycin 1 GM in D5W 275 ML IVPB SCH (00:30)
[2017-10-21 04:00] VITALS: BP 108/75
[2017-10-21 07:43] LABS: HEMATOCRIT 37.6 % (37.0-47.0); HEMOGLOBIN 12.8 G/DL (12.0-16.0); MEAN CORPUSCULAR VOLUME 94 FL (80-99); PLATELET COUNT 220 K/UL (150-450); RED CELL DISTRIBUTION WIDTH 11.9 % (11.6-14.8)
[2017-10-21 08:02] LABS: ALANINE AMINOTRANSFERASE 14 U/L (12-78); ALBUMIN 3.4 G/DL (3.4-5.0); ALBUMIN/GLOBULIN RATIO 1.1 (1.0-2.7); ALKALINE PHOSPHATASE 31 U/L (46-116); ANION GAP 10 mmol/L (5-15); ASPARTATE AMINO TRANSFERASE 14 U/L (15-37); BILIRUBIN,TOTAL 0.3 MG/DL (0.2-1.0); BLOOD UREA NITROGEN 12 mg/dL (7-18); CALCIUM 8.4 MG/DL (8.5-10.1); CARBON DIOXIDE 25 MMOL/L (21-32); CHLORIDE 105 MMOL/L (98-107); CREATININE 0.7 MG/DL (0.55-1.30); POTASSIUM 3.1 MMOL/L (3.5-5.1); SODIUM 140 MMOL/L (136-145)
[2017-10-21 08:26] VITALS: BP 109/73
[2017-10-21] MEDS: Depakote 500mg tab ORAL SCH ×2 (08:44→13:07)
[2017-10-21] MEDS: Morphine Sulfate 2mg/ml Inj(IV/IM USE ONLY) IVP PRN ×2 (08:51→20:53)
--- NOTE | 2017-10-21 08:59 | Consultation ---
History of Present Illness General Date patient seen: Oct 21, 2017 Chief Complaint: Female Urogenital Problems Reason for Consultation: UTI Present Illness HPI Ms Chowdary is a 52 yo female with PMHx Seizure disorder ,asthma /COPD, tracheostomy ,status post removal ,hepatitis C, hypertension, history of CVA, bipolar disorder who presented the ED 10/20/17 with inability to urinate. She has had abdominal boating and had not urinated for one day. She denies fevers but has had dysuria. She was recently admitted from 10/14/17 to 10/17/17 after having a seizure. She was treated for E. coli UTI at that time. In the ED she was found to have no leukocytosis or fever. UA had a few WBCs. A quinn cather was placed and she abdominal pain resolved. PMHx/PSHx Seizure disorder , Asthma/COPD SP tracheostomy ,status post removal Hepatitis C Hypertension Hx CVA 1992 Left sided deficits Bipolar disorder SocHx Lives with parents No E/T/D MJ + FamHx Review Not contributory Allergies: Coded Allergies: No Known Allergies (Verified Allergy, Unknown, 05/09/08) Medication History Scheduled Alendronate Sodium* (Fosamax*), 70 MG ORAL ONCE A WEEK, (Reported) Budesonide/Formoterol Fumarate (Symbicort 160-4.5 Mcg Inhaler), 2 PUFF INH TWICE A DAY, (Reported) Clonazepam* (Klonopin*), 1 MG ORAL bid, (Reported) Divalproex Sodium (Depakote), 500 MG PO tid, (Reported) Divalproex Sodium* (Depakote*), 300 MG PO hs, (Reported) Divalproex Sodium* (Depakote*), 750 MG ORAL EVERY 12 HOURS Phenytoin Sodium Extended* (Dilantin*), 300 MG ORAL QHS Ziprasidone Hcl* (Geodon*), 80 MG PO bid, (Reported) Scheduled PRN Baclofen* (Baclofen*), 10 MG ORAL THREE TIMES A DAY PRN for Muscle Spasm, ( Reported) Ibuprofen* (Motrin*), 800 MG ORAL THREE TIMES A DAY PRN for For Pain, (Reported) Ondansetron* (Zofran*), 4 MG ORAL tid PRN for Nausea & Vomiting, (Reported) Discontinued Medications Cephalexin* (Keflex*), 500 MG ORAL EVERY 12 HOURS Discontinued Reason: Therapy completed Ibuprofen* (Motrin*), 600 MG ORAL Q8H PRN for For Pain Discontinued Reason: Medication dose changed Nitrofurantoin Monohyd/M-Cryst* (Macrobid 100 Mg*), 100 MG ORAL EVERY 12 HOURS Discontinued Reason: Therapy completed Phenytoin Sodium Extended* (Dilantin*), 300 MG PO QHS, (Reported) Discontinued Reason: Pt stopped taking med Temazepam (Restoril*), 30 MG ORAL BEDTIME, (Reported) Discontinued Reason: Therapy completed Patient History Healthcare decision maker Resuscitation status Full Code Advanced Directive on File Review of Systems All Other Systems: negative except mentioned in HPI Physical Exam Last 24 Hour Vital Signs Date Time Temp Pulse Resp B/P (MAP) Pulse Ox O2 Delivery O2 Flow Rate FiO2 10/21/17 08:26 98.4 103 18 109/73 (85) 95 98.4 10/21/17 04:00 98.3 93 19 108/75 (86) 100 98.3 10/21/17 01:16 Room Air 10/21/17 00:00 98.5 104 19 119/83 (95) 94 98.5 10/20/17 23:20 98.3 97 20 113/83 96 Room Air 98.3 10/20/17 23:18 98.3 10/20/17 22:50 98.3 97 20 113/83 96 Room Air 98.3 10/20/17 22:19 98.5 10/20/17 21:50 98.4 99 16 119/85 98 Room Air 98.4 10/20/17 18:51 96 16 131/90 96 Room Air 10/20/17 15:23 98.5 112 18 129/89 95 98.4 Intake and Output 10/20/17 10/21/17 19:00 07:00 Intake Total 175 ml Output Total 350 ml Balance -175 ml Intake Oral 120 ml IV Total 55 ml Output Urine Total 350 ml # Bowel Movements 1 Laboratory Tests Test 10/20/17 17:04 10/20/17 17:15 10/21/17 07:10 White Blood Count 10.7 K/UL (4.8-10.8) 8.0 K/UL (4.8-10.8) Red Blood Count 4.17 M/UL (4.20-5.40) L 4.00 M/UL (4.20-5.40) L Hemoglobin 13.5 G/DL (12.0-16.0) 12.8 G/DL (12.0-16.0) Hematocrit 39.5 % (37.0-47.0) 37.6 % (37.0-47.0) Mean Corpuscular Volume 95 FL (80-99) 94 FL (80-99) Mean Corpuscular Hemoglobin 32.5 PG (27.0-31.0) H 32.0 PG (27.0-31.0) H Mean Corpuscular Hemoglobin Concent 34.3 G/DL (32.0-36.0) 34.1 G/DL (32.0-36.0) Red Cell Distribution Width 12.1 % (11.6-14.8) 11.9 % (11.6-14.8) Platelet Count 238 K/UL (150-450) 220 K/UL (150-450) Mean Platelet Volume 7.0 FL (6.5-10.1) 7.0 FL (6.5-10.1) Neutrophils (%) (Auto) 52.6 % (45.0-75.0) % (45.0-75.0) Lymphocytes (%) (Auto) 41.2 % (20.0-45.0) % (20.0-45.0) Monocytes (%) (Auto) 4.5 % (1.0-10.0) % (1.0-10.0) Eosinophils (%) (Auto) 0.1 % (0.0-3.0) % (0.0-3.0) Basophils (%) (Auto) 1.6 % (0.0-2.0) % (0.0-2.0) Sodium Level 140 MMOL/L (136-145) 140 MMOL/L (136-145) Potassium Level 3.6 MMOL/L (3.5-5.1) 3.1 MMOL/L (3.5-5.1) L Chloride Level 102 MMOL/L (98-107) 105 MMOL/L (98-107) Carbon Dioxide Level 23 MMOL/L (21-32) 25 MMOL/L (21-32) Anion Gap 15 mmol/L (5-15) 10 mmol/L (5-15) Blood Urea Nitrogen 14 mg/dL (7-18) 12 mg/dL (7-18) Creatinine 0.7 MG/DL (0.55-1.30) 0.7 MG/DL (0.55-1.30) Estimat Glomerular Filtration Rate > 60 mL/min (>60) > 60 mL/min (>60) Glucose Level 100 MG/DL (74-106) 103 MG/DL (74-106) Lactic Acid Level 0.80 mmol/L (0.4-2.0) Calcium Level 9.1 MG/DL (8.5-10.1) 8.4 MG/DL (8.5-10.1) L Total Bilirubin 0.3 MG/DL (0.2-1.0) 0.3 MG/DL (0.2-1.0) Aspartate Amino Transf (AST/SGOT) 17 U/L (15-37) 14 U/L (15-37) L Alanine Aminotransferase (ALT/SGPT) 15 U/L (12-78) 14 U/L (12-78) Alkaline Phosphatase 35 U/L (46-116) L 31 U/L (46-116) L Total Creatine Kinase 114 U/L (26-308) Creatine Kinase MB 1.6 NG/ML (0.0-3.6) Creatine Kinase MB Relative Index 1.4 Troponin I 0.000 ng/mL (0.000-0.056) Total Protein 7.2 G/DL (6.4-8.2) 6.6 G/DL (6.4-8.2) Albumin 3.9 G/DL (3.4-5.0) 3.4 G/DL (3.4-5.0) Globulin 3.3 g/dL 3.2 g/dL Albumin/Globulin Ratio 1.2 (1.0-2.7) 1.1 (1.0-2.7) Phenytoin (Dilantin) Level 12.7 ug/mL (10-20) Valproic Acid (Depakene) Level 64 MCG/ML (50-100) Urine Color Yellow Urine Appearance Clear Urine pH 6 (4.5-8.0) Urine Specific [place] 1.015 (1.005-1.035) Urine Protein 2+ (NEGATIVE) H Urine Glucose (UA) Negative (NEGATIVE) Urine Ketones 2+ (NEGATIVE) H Urine Occult Blood 1+ (NEGATIVE) H Urine Nitrite Negative (NEGATIVE) Urine Bilirubin 1+ (NEGATIVE) H Urine Ictotest Negative (NEGATIVE) Urine Urobilinogen 1 MG/DL (0.0-1.0) H Urine Leukocyte Esterase 1+ (NEGATIVE) H Urine RBC 2-4 /HPF (0 - 2) H Urine WBC 5-10 /HPF (0 - 2) H Urine Squamous Epithelial Cells Few /LPF (NONE/OCC) Urine Amorphous Sediment Few /LPF (NONE) H Urine Bacteria Few /HPF (NONE) Urine Fine Granular Casts 2-4 /LPF (NONE) H Urine Yeast Few /HPF (NONE) H Differential Total Cells Counted 100 Neutrophils % (Manual) 34 % (45-75) L Lymphocytes % (Manual) 57 % (20-45) H Monocytes % (Manual) 7 % (1-10) Eosinophils % (Manual) 1 % (0-3) Basophils % (Manual) 1 % (0-2) Band Neutrophils 0 % (0-8) Platelet Estimate Adequate Platelet Morphology Normal Red Blood Cell Morphology Normal Height (Feet): 4 Height (Inches): 10.00 Weight (Pounds): 130 Medications Current Medications Medications (Trade) Dose Ordered Sig/Patricia Route PRN Reason Start Time Stop Time Status Last Admin Dose Admin Acetaminophen (Tylenol) 650 mg Q4H PRN ORAL fever 10/20/17 21:15 11/19/17 21:14 Albuterol/ Ipratropium (Albuterol/ Ipratropium) 3 ml EVERY 4 HOURS PRN HHN Shortness of Breath 10/20/17 21:15 10/25/17 21:14 Cefepime HCl 2 gm/ Dextrose 110 ml @ 220 mls/hr EVERY 12 HOURS IV 10/21/17 09:00 10/28/17 08:59 Clonazepam (KlonoPIN) 1 mg BID ORAL 10/21/17 09:00 10/28/17 08:59 Divalproex Sodium (Depakote) 500 mg TID ORAL 10/21/17 09:00 11/20/17 08:59 Heparin Sodium (Porcine) (Heparin 5000 units/ml) 5,000 units EVERY 12 HOURS SUBQ 10/20/17 23:15 11/19/17 23:14 10/21/17 00:02 Morphine Sulfate (Morphine Sulfate) 2 mg Q4H PRN IVP Moderate Pain (Pain Scale 4-6) 10/20/17 21:15 10/27/17 21:14 Ondansetron HCl (Zofran) 4 mg Q6H PRN IVP Nausea & Vomiting 10/20/17 21:15 11/19/17 21:14 Phenazopyridine HCl (Pyridium) 100 mg DAILY PRN ORAL dysuria 10/20/17 21:15 11/19/17 21:14 Phenytoin (Dilantin) 300 mg QHS ORAL 10/20/17 23:04 11/19/17 23:03 10/21/17 00:00 Polyethylene Glycol (Miralax) 17 gm DAILYPRN PRN ORAL Constipation 10/20/17 21:15 11/19/17 21:14 Temazepam (Restoril) 15 mg HSPRN PRN ORAL Insomnia 10/20/17 21:15 10/27/17 21:14 10/21/17 00:22 Vancomycin HCl 1 gm/Dextrose 275 ml @ 183.3 mls/ hr Q24H IVPB 10/21/17 00:30 10/26/17 00:29 10/21/17 00:01 Objective Narrative Gen:~ NAD, well appearing, alert HEENT: NCAT, MMM, EOMI, PERRL, No Oral lesion, no scleral icterus~ NECK: full range of motion, supple, no meningismus, No LAD, No JVD LUNGS: CTAB, No W/C, No Accessory muscle use CARDS: RRR, S1, S2, No M/R/G,~ ABD: Soft, NT, ND, No R/G, + BS, No HSM, No Masses Ext: C/C/E, Pulses 2+ B/L (DP, Rad), Some contracture of left arm : Deferred NEURO: A/O x 4, Left sided weakness, Strength 5/5 lower ext. PSYCH:~ mood/affect normal SKIN:~ warm/dry, No rashes Assessment/Plan Assessment/Plan Ms Chowdary is a 52 yo female with PMHx Seizure disorder ,asthma /COPD, tracheostomy ,status post removal ,hepatitis C, hypertension, history of CVA, bipolar disorder who presented the ED 10/20/17 with inability to urinate. # Inability to Urinate possible UTI involvement, Neurogenic bladder? UA with some increase WBCs and inability to urinate now resolved - Urine Cx pending - Urine Cx E. coli 10/15/17 #Seizure disorder , #Asthma/COPD #SP tracheostomy ,status post removal #Hepatitis C #Hypertension #Hx CVA 1992 Left sided deficits #Bipolar disorder PLAN: - D/C Vancomycin #1 and Cefepime #1 - Start Ceftriaxone #1 - f/u urine cultures - recommend urology consult for inability to urinate. - monitor CBC and Temps Thank you for consulting us for the care of this patient. We will continue to follow with you. Masood Villegas M.D. Oct 21, 2017 08:59
[2017-10-21] MEDS ORDERED: Cefepime HCl 2 GM in D5W 110 ML IV SCH (09:00)
[2017-10-21 12:00] VITALS: BP 110/75
[2017-10-21] MEDS: cefTRIAXone 1 GM in D5W 55 ML IVPB SCH (14:37)
--- NOTE | 2017-10-21 15:27 | Consultation ---
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 Denies fevers, chills, nausea or vomiting. She also reports that she was recently evaluated for seizures and placed onto Dilantin she denies having any seizures since leaving the hospital. HPI and ROS somewhat limited. Pt. denies difficulty ambulating. denies numbness to inner thighs but reports genital area numbness. patient was brought to the hospital due to new onset incontinence. She was diagnosed to have UTI and admitted for further management. Allergies: Coded Allergies: No Known Allergies (Verified Allergy, Unknown, 05/09/08) Medication History Scheduled Alendronate Sodium* (Fosamax*), 70 MG ORAL ONCE A WEEK, (Reported) Budesonide/Formoterol Fumarate (Symbicort 160-4.5 Mcg Inhaler), 2 PUFF INH TWICE A DAY, (Reported) Clonazepam* (Klonopin*), 1 MG ORAL bid, (Reported) Divalproex Sodium (Depakote), 500 MG PO tid, (Reported) Divalproex Sodium* (Depakote*), 300 MG PO hs, (Reported) Divalproex Sodium* (Depakote*), 750 MG ORAL EVERY 12 HOURS Phenytoin Sodium Extended* (Dilantin*), 300 MG ORAL QHS Ziprasidone Hcl* (Geodon*), 80 MG PO bid, (Reported) Scheduled PRN Baclofen* (Baclofen*), 10 MG ORAL THREE TIMES A DAY PRN for Muscle Spasm, ( Reported) Ibuprofen* (Motrin*), 800 MG ORAL THREE TIMES A DAY PRN for For Pain, (Reported) Ondansetron* (Zofran*), 4 MG ORAL tid PRN for Nausea & Vomiting, (Reported) Discontinued Medications Cephalexin* (Keflex*), 500 MG ORAL EVERY 12 HOURS Discontinued Reason: Therapy completed Ibuprofen* (Motrin*), 600 MG ORAL Q8H PRN for For Pain Discontinued Reason: Medication dose changed Nitrofurantoin Monohyd/M-Cryst* (Macrobid 100 Mg*), 100 MG ORAL EVERY 12 HOURS Discontinued Reason: Therapy completed Phenytoin Sodium Extended* (Dilantin*), 300 MG PO QHS, (Reported) Discontinued Reason: Pt stopped taking med Temazepam (Restoril*), 30 MG ORAL BEDTIME, (Reported) Discontinued Reason: Therapy completed Patient History Healthcare decision maker Resuscitation status Full Code Advanced Directive on File Past Medical/Surgical History Past Medical/Surgical History: (1) Focal seizures (2) Left hemiplegia (3) COPD (chronic obstructive pulmonary disease) (4) Hepatitis C (5) Bipolar disorder (6) Seizure (7) Left hemiparesis Review of Systems All Other Systems: negative except mentioned in HPI Physical Exam General Appearance: WD/WN, no apparent distress Lines, tubes and drains: peripheral HEENT: normocephalic, atraumatic Neck: non-tender, normal alignment Respiratory/Chest: chest wall non-tender, lungs clear Breasts: no masses Cardiovascular/Chest: normal peripheral pulses, regular rhythm Abdomen: normal bowel sounds Genitourinary/Rectal: normal genital exam Extremities: normal range of motion Last 24 Hour Vital Signs Date Time Temp Pulse Resp B/P (MAP) Pulse Ox O2 Delivery O2 Flow Rate FiO2 10/21/17 12:00 98.4 100 18 110/75 (87) 95 98.4 10/21/17 09:00 Room Air 10/21/17 08:26 98.4 103 18 109/73 (85) 95 98.4 10/21/17 04:00 98.3 93 19 108/75 (86) 100 98.3 10/21/17 01:16 Room Air 10/21/17 00:00 98.5 104 19 119/83 (95) 94 98.5 10/20/17 23:20 98.3 97 20 113/83 96 Room Air 98.3 10/20/17 23:18 98.3 10/20/17 22:50 98.3 97 20 113/83 96 Room Air 98.3 10/20/17 22:19 98.5 10/20/17 21:50 98.4 99 16 119/85 98 Room Air 98.4 10/20/17 18:51 96 16 131/90 96 Room Air 10/20/17 15:23 98.5 112 18 129/89 95 98.4 Intake and Output 10/20/17 10/21/17 19:00 07:00 Intake Total 175 ml Output Total 350 ml Balance -175 ml Intake Oral 120 ml IV Total 55 ml Output Urine Total 350 ml # Bowel Movements 1 Laboratory Tests Test 10/20/17 17:04 10/20/17 17:15 10/21/17 07:10 White Blood Count 10.7 K/UL (4.8-10.8) 8.0 K/UL (4.8-10.8) Red Blood Count 4.17 M/UL (4.20-5.40) L 4.00 M/UL (4.20-5.40) L Hemoglobin 13.5 G/DL (12.0-16.0) 12.8 G/DL (12.0-16.0) Hematocrit 39.5 % (37.0-47.0) 37.6 % (37.0-47.0) Mean Corpuscular Volume 95 FL (80-99) 94 FL (80-99) Mean Corpuscular Hemoglobin 32.5 PG (27.0-31.0) H 32.0 PG (27.0-31.0) H Mean Corpuscular Hemoglobin Concent 34.3 G/DL (32.0-36.0) 34.1 G/DL (32.0-36.0) Red Cell Distribution Width 12.1 % (11.6-14.8) 11.9 % (11.6-14.8) Platelet Count 238 K/UL (150-450) 220 K/UL (150-450) Mean Platelet Volume 7.0 FL (6.5-10.1) 7.0 FL (6.5-10.1) Neutrophils (%) (Auto) 52.6 % (45.0-75.0) % (45.0-75.0) Lymphocytes (%) (Auto) 41.2 % (20.0-45.0) % (20.0-45.0) Monocytes (%) (Auto) 4.5 % (1.0-10.0) % (1.0-10.0) Eosinophils (%) (Auto) 0.1 % (0.0-3.0) % (0.0-3.0) Basophils (%) (Auto) 1.6 % (0.0-2.0) % (0.0-2.0) Sodium Level 140 MMOL/L (136-145) 140 MMOL/L (136-145) Potassium Level 3.6 MMOL/L (3.5-5.1) 3.1 MMOL/L (3.5-5.1) L Chloride Level 102 MMOL/L (98-107) 105 MMOL/L (98-107) Carbon Dioxide Level 23 MMOL/L (21-32) 25 MMOL/L (21-32) Anion Gap 15 mmol/L (5-15) 10 mmol/L (5-15) Blood Urea Nitrogen 14 mg/dL (7-18) 12 mg/dL (7-18) Creatinine 0.7 MG/DL (0.55-1.30) 0.7 MG/DL (0.55-1.30) Estimat Glomerular Filtration Rate > 60 mL/min (>60) > 60 mL/min (>60) Glucose Level 100 MG/DL (74-106) 103 MG/DL (74-106) Lactic Acid Level 0.80 mmol/L (0.4-2.0) Calcium Level 9.1 MG/DL (8.5-10.1) 8.4 MG/DL (8.5-10.1) L Total Bilirubin 0.3 MG/DL (0.2-1.0) 0.3 MG/DL (0.2-1.0) Aspartate Amino Transf (AST/SGOT) 17 U/L (15-37) 14 U/L (15-37) L Alanine Aminotransferase (ALT/SGPT) 15 U/L (12-78) 14 U/L (12-78) Alkaline Phosphatase 35 U/L (46-116) L 31 U/L (46-116) L Total Creatine Kinase 114 U/L (26-308) Creatine Kinase MB 1.6 NG/ML (0.0-3.6) Creatine Kinase MB Relative Index 1.4 Troponin I 0.000 ng/mL (0.000-0.056) Total Protein 7.2 G/DL (6.4-8.2) 6.6 G/DL (6.4-8.2) Albumin 3.9 G/DL (3.4-5.0) 3.4 G/DL (3.4-5.0) Globulin 3.3 g/dL 3.2 g/dL Albumin/Globulin Ratio 1.2 (1.0-2.7) 1.1 (1.0-2.7) Phenytoin (Dilantin) Level 12.7 ug/mL (10-20) Valproic Acid (Depakene) Level 64 MCG/ML (50-100) Urine Color Yellow Urine Appearance Clear Urine pH 6 (4.5-8.0) Urine Specific [place] 1.015 (1.005-1.035) Urine Protein 2+ (NEGATIVE) H Urine Glucose (UA) Negative (NEGATIVE) Urine Ketones 2+ (NEGATIVE) H Urine Occult Blood 1+ (NEGATIVE) H Urine Nitrite Negative (NEGATIVE) Urine Bilirubin 1+ (NEGATIVE) H Urine Ictotest Negative (NEGATIVE) Urine Urobilinogen 1 MG/DL (0.0-1.0) H Urine Leukocyte Esterase 1+ (NEGATIVE) H Urine RBC 2-4 /HPF (0 - 2) H Urine WBC 5-10 /HPF (0 - 2) H Urine Squamous Epithelial Cells Few /LPF (NONE/OCC) Urine Amorphous Sediment Few /LPF (NONE) H Urine Bacteria Few /HPF (NONE) Urine Fine Granular Casts 2-4 /LPF (NONE) H Urine Yeast Few /HPF (NONE) H Differential Total Cells Counted 100 Neutrophils % (Manual) 34 % (45-75) L Lymphocytes % (Manual) 57 % (20-45) H Monocytes % (Manual) 7 % (1-10) Eosinophils % (Manual) 1 % (0-3) Basophils % (Manual) 1 % (0-2) Band Neutrophils 0 % (0-8) Platelet Estimate Adequate Platelet Morphology Normal Red Blood Cell Morphology Normal Microbiology Date/Time Source Procedure Growth Status 10/20/17 17:15 Urine,Clean Catch Urine Culture - Preliminary NO GROWTH Resulted Height (Feet): 4 Height (Inches): 10.00 Weight (Pounds): 130 Medications Current Medications Medications (Trade) Dose Ordered Sig/Patricia Route PRN Reason Start Time Stop Time Status Last Admin Dose Admin Acetaminophen (Tylenol) 650 mg Q4H PRN ORAL fever 10/20/17 21:15 11/19/17 21:14 Albuterol/ Ipratropium (Albuterol/ Ipratropium) 3 ml EVERY 4 HOURS PRN HHN Shortness of Breath 8/8/18 21:15 10/25/17 21:14 Ceftriaxone Sodium 1 gm/ Dextrose 55 ml @ 110 mls/hr DAILY IVPB 10/21/17 14:00 10/28/17 13:59 10/21/17 14:37 Clonazepam (KlonoPIN) 1 mg BID ORAL 10/21/17 09:00 10/28/17 08:59 10/21/17 08:44 Divalproex Sodium (Depakote) 500 mg TID ORAL 10/21/17 09:00 11/20/17 08:59 10/21/17 13:07 Heparin Sodium (Porcine) (Heparin 5000 units/ml) 5,000 units EVERY 12 HOURS SUBQ 10/20/17 23:15 11/19/17 23:14 10/21/17 08:47 Morphine Sulfate (Morphine Sulfate) 2 mg Q4H PRN IVP Moderate Pain (Pain Scale 4-6) 10/20/17 21:15 10/27/17 21:14 10/21/17 08:51 Ondansetron HCl (Zofran) 4 mg Q6H PRN IVP Nausea & Vomiting 10/20/17 21:15 11/19/17 21:14 Phenazopyridine HCl (Pyridium) 100 mg DAILY PRN ORAL dysuria 10/20/17 21:15 11/19/17 21:14 Phenytoin (Dilantin) 300 mg QHS ORAL 10/20/17 23:04 11/19/17 23:03 10/21/17 00:00 Polyethylene Glycol (Miralax) 17 gm DAILYPRN PRN ORAL Constipation 10/20/17 21:15 11/19/17 21:14 Temazepam (Restoril) 15 mg HSPRN PRN ORAL Insomnia 10/20/17 21:15 10/27/17 21:14 10/21/17 00:22 Assessment/Plan Problem List: (1) UTI (urinary tract infection) ICD Codes: N39.0 - Urinary tract infection, site not specified SNOMED: 49539234 (2) Left hemiplegia ICD Codes: G81.90 - Hemiplegia, unspecified affecting unspecified side SNOMED: 090302624 (3) Hepatitis C ICD Codes: B19.20 - Unspecified viral hepatitis C without hepatic coma SNOMED: 40737823 (4) Seizure ICD Codes: R56.9 - Unspecified convulsions SNOMED: 05841572 (5) Bipolar disorder ICD Codes: F31.9 - Bipolar disorder, unspecified SNOMED: 52656098 (6) COPD (chronic obstructive pulmonary disease) ICD Codes: J44.9 - Chronic obstructive pulmonary disease, unspecified SNOMED: 58344116 (7) Incontinence of urine in female ICD Codes: R32 - Unspecified urinary incontinence SNOMED: 874296870 (8) Cerebral vascular disease ICD Codes: I67.9 - Cerebrovascular disease, unspecified SNOMED: 55326794 Assessment/Plan urine cultures iv abx respiratory treatment neurology evaluation ID evaluation Kylee Holley MD Oct 21, 2017 15:27
[2017-10-21 16:42] VITALS: BP 93/68
--- NOTE | 2017-10-21 18:14 | History & Physical ---
History and Physical History & Physicial Dictated for Int Med Dr Patino no. [id number] Benjamin Crook MD Oct 21, 2017 18:14
--- NOTE | 2017-10-21 19:27 | Consultation ---
Consult Note Consult Note DATE OF CONSULTATION: 10/21/2017 NEUROLOGY CONSULTATION CONSULTING PHYSICIAN: Patricia Bojorquez M.D. REFERRING PHYSICIANS: Esvin Patino M.D. HISTORY: Ms. Sandie Chowdary is a 52-year-old, right-handed, lady, who has past history of bipolar affective disorder, polysubstance abuse, a stroke with left-sided weakness in the , and a poststroke seizure disorder. She also has been plagued by multiple urinary tract infections. She was functioning relatively well until approximately a year ago when she discontinued taking her Dilantin and Depakote because she had no seizures for some time. Then on 10/14/17, she was hospitalized for multiple seizures. She was restarted on her antiseizure medicine, stabilized and sent home. She was at home for a few days and was bothered by a UTI. She first had urinary frequency, followed by urinary incontinence and then urinary retention. She was thus brought to the [facility] ER and has since been admitted. She has been seizure-free since her last seizure on 10/14/17. She feels that her neurologic condition is at its baseline. She denies any increased weakness on one side or the other, numbness on one side or the other, problems with speech, problems with language, problems with vision, problems with memory, or other neurological problems. PAST HISTORY: Significant for bipolar affective disorder, a stroke with left-sided weakness numerous years ago, poststroke seizure disorder, polysubstance abuse, and prior urinary tract infections. FAMILY HISTORY: Nothing significant as per the patient. PERSONAL HISTORY: HOME: She lives with the parents. WORK: She is unemployed. HABITS: She used to smoke, drink, and use various different drugs in the past, but at this point, she tells me the last time she used any drug was marijuana a few months ago. PHYSICAL EXAMINATION: GENERAL: She is a well-developed, well-nourished, pleasant lady, lying in bed, in no acute distress. VITAL SIGNS: Pulse 100/minute, blood pressure 93/68 mmHg, respirations 18/minute, and temperature 98.6 degrees Fahrenheit. HEAD: Normocephalic and atraumatic. NECK: No neck rigidity was observed. EENT: Examination benign. NEUROLOGICAL EXAMINATION: MENTAL STATUS EXAMINATION: She was awake and alert. She was oriented to person, place, and time. She was able to recall 3/3 words immediately, and could remember them in 1 minute and 3 minutes on the second trial. She was able to remember presidents, Trump through Stevenson Gilberto. Her mathematical skills were impaired. Her visuospatial function was also impaired. SPEECH: She had mild dysarthria. LANGUAGE: She had anomia for low-frequency words. CRANIAL NERVE EXAMINATION: II: The visual barr were intact to confrontation testing. III, IV, : External ocular movements were full and the pupils 3 mm in diameter, equal, round, regular, and reactive to light. V: She had normal facial sensations and the temporales, masseters, and pterygoids functioned normally. VII: She had left VII central facial paresis. VIII: She was able to hear and had no nystagmus. IX: The palate moved symmetrically on phonation. X: She had no hoarseness of voice. XI: The sternocleidomastoids and trapezii functioned normally. XII: The tongue was in the midline without any fasciculations or atrophy. MOTOR SYSTEM: The tone was increased on the left side with a significant degree of spasticity involving the upper extremity more than lower extremity. Examination of muscle mass revealed wasting of the left upper and lower extremities and she had her left upper extremity in a flexion contracture. Examination of power revealed G 5/5 power on the right side. On the left side, she had G 0/5 power in the finger flexors and finger extensors, G 2/5 in the wrist extensors and wrist flexors, G 5-/5 in the elbow flexors and elbow extensors, G 4+/5 in the left deltoid, G 4-/5 in the left iliopsoas, and G 4++/5 in the toe extensors on the left. SENSORY EXAMINATION: She had intact sensations to pinprick, light touch, and graphesthesia. COORDINATION: She performed well on [id number]-[id number] and asgk-rj-[id number] testing on the right side. On the left side, she was unable to perform [id number]-[id number] testing and the tepg-jj-unph testing was clumsy. REFLEXES: 2+ on the right and 3+ on the left in the biceps, triceps, brachioradialis, and knees; zero at both ankles. The plantar response was flexor on the right and extensor on the left. STANCE: She stood up independently. GAIT: She walked independently with a left hemiparetic gait. DIAGNOSTIC IMPRESSION: 1. Ms. Sandie Chowdary is a 52-year-old, right-handed, lady, with past history of bipolar affective disorder, stroke with left-sided paresis, poststroke seizure disorder, polysubstance abuse, and prior urinary tract infections, who stopped taking antiseizure medicine about a year ago because she had no seizures for quite sometime and then on 10/14/17 had a flurry of seizures. She has been seizure free since then. 2. She was hospitalized for urinary frequency, followed by urinary incontinence and then urinary retention. 3. On neurological examination, at this time, she does demonstrate problems with recent and remote memory, visuospatial function, higher cognitive function, and language. She also has a left hemiparesis involving the face and upper extremity more than the lower extremity. Her deep tendon reflexes are brisker on the left side compared to the right. She has an extensor plantar response on the left side. In addition, she walks with left hemiparetic gait. 4. Her last CT scan of the [facility] performed at [facility] was on 12/30/2015, and revealed an old right frontal and basal ganglion infarct. 5. Her laboratory data on admission revealed that her CBC was benign. Her chemistry panel was also benign. Her urinalysis revealed 1+ leukocyte esterase, 2-4 RBCs, and 5-10 WBCs with many bacteria in the urine. 6. The patient's history, neurological examination, and laboratory data, are most compatible with an acute urinary tract infection leading to urinary retention. 7. Her seizures are well controlled on her present therapeutic regimen. RECOMMENDATIONS: 1. Continue present management. 2. Dilantin 300 mg q HS. 3. Depakote 750 mg q 12 hours. 4. The patient's urinary tract infection should be treated appropriately. Thank you for entrusting me with the care of Ms. Chowdary. I shall follow her with you. Patricia Bojorquez M.D., M.S.P.H. PATRICIA BOJORQUEZ Oct 21, 2017 19:27
[2017-10-21 20:00] VITALS: BP 95/66
[2017-10-21] MEDS: Depakote ER 250mg tab ORAL SCH (20:28)
[2017-10-21] MEDS: Phenytoin 100mg cap ORAL SCH ×2 (20:29)
[2017-10-21] MEDS ORDERED: Depakote 500mg tab ORAL SCH (22:00)
[2017-10-22] VITALS: BP 98/90
--- NOTE | 2017-10-22 02:00 | History and Physical Report ---
DATE OF ADMISSION: 10/20/2017 CHIEF COMPLAINT: The patient is a 52-year-old white female, who presents with a chief complaint of urinary retention. HISTORY OF PRESENT ILLNESS: Began one day prior to admission. The patient was unable to urinate. The patient complained of increasing abdominal bloating. The patient had abdominal pain. The patient presented to [place] emergency room. A [place] catheter returned 60 mL of residual urine. Urinalysis showed urinary tract infection. The patient is admitted for urinary retention and urinary tract infection. REVIEW OF SYSTEMS: CONSTITUTIONAL: The patient denies weight loss or weight gain. The patient denies fevers or chills. HEENT: The patient denies ear or throat pain. The patient denies headache. CARDIOVASCULAR: The patient denies palpitations or chest pain. CHEST: The patient denies wheeze or shortness of breath. ABDOMEN: The patient complains of abdominal distention as above. The patient denies nausea, vomiting, diarrhea, or constipation. GENITOURINARY: The patient complains of urinary retention as above. The patient denies dysuria or increased frequency of urination. NEUROMUSCULAR: The patient has a left-sided hemiparesis. The patient has a history of seizures. The patient denies generalized weakness. PAST MEDICAL HISTORY: Significant for, 1. Cerebrovascular disease, status post cerebrovascular accident in 1991. 2. Resultant left hemiparesis with contractures. 3. Seizure disorder. 4. Bipolar depression. PAST SURGICAL HISTORY: Significant for, 1. Tracheostomy in 1991. 2. Multiple chest tubes placed in 1991 secondary to pneumothorax. CURRENT MEDICATIONS: 1. Fosamax 70 mg 1 tablet p.o. every week. 2. Baclofen 10 mg p.o. 3 times daily. 3. Symbicort 160/4.5 two puffs p.o. twice daily. 4. Klonopin 1 mg one tab p.o. twice daily. 5. Depakote 500 mg p.o. 3 times daily. 6. Dilantin 300 mg p.o. at bedtime. 7. Geodon 80 mg p.o. twice daily. ALLERGIES: No known drug allergies. SOCIAL HISTORY: The patient is a . The patient previously smoked one pack of cigarettes daily, however, quit 1 year ago. The patient denies alcohol use. PHYSICAL EXAMINATION: VITAL SIGNS: Temperature 98.2, respirations 19, pulse 93, and blood pressure 108/75. GENERALLY: The patient is a well-developed and well-nourished white female, in no apparent distress. HEENT: Eyes, pupils equal and responsive to light and accommodation. Extraocular movements are intact. NECK: Supple without lymphadenopathy. CHEST: Lungs are clear to auscultation bilaterally without wheezes or rales. CARDIOVASCULAR: Regular rhythm and rate. S1 and S2 are normal without murmurs, rubs, or gallops. ABDOMEN: Soft, nontender, and nondistended. Positive bowel sounds. No evidence of hepatosplenomegaly. Currently, no rebound or guarding noted. EXTREMITIES: Negative for clubbing, cyanosis, or edema. RECTAL/GENITAL: Refused. NEUROLOGIC: The patient has a left hemiparesis. Otherwise, cranial nerves II through XII are grossly intact without focal deficits. LABORATORY STUDIES: WBC 10.7, hemoglobin 13.5, hematocrit 39.5, and platelets . Sodium 140, potassium 3.6, chloride 102, CO2 23, BUN 14, creatinine 0.7, and glucose 100. Urinalysis showed 2+ protein, 2+ ketones, 1+ occult blood, 1+ bilirubin, and 1+ leukocyte esterase with 5 to 10 wbc's. ASSESSMENT: This is a 52-year-old white female. 1. Urinary retention. 2. Urinary tract infection. 3. History of cerebrovascular disease. 4. Left hemiparesis. 5. Seizure disorder. 6. Bipolar depression. TREATMENT: 1. Urine retention/urinary tract infection. The patient has been started empirically on ceftriaxone and vancomycin. An Infectious Disease consultation has been obtained with Dr. Giordano. We will follow recommendations of Infectious Disease. 2. Cerebrovascular disease/left hemiparesis. This is chronic in nature. 3. Seizure disorder. Continue Dilantin and Depakote as above. 4. Bipolar disorder. Continue Geodon as above. Benjamin Crook M.D. DR: FIDENCIO JOB#: [id number] CC:
[2017-10-22 04:00] VITALS: BP 95/67
[2017-10-22 06:19] LABS: HEMATOCRIT 36.3 % (37.0-47.0); HEMOGLOBIN 12.1 G/DL (12.0-16.0); MEAN CORPUSCULAR VOLUME 94 FL (80-99); PLATELET COUNT 228 K/UL (150-450); RED BLOOD COUNT 3.86 M/UL (4.20-5.40); RED CELL DISTRIBUTION WIDTH 12.2 % (11.6-14.8); WHITE BLOOD COUNT 8.2 K/UL (4.8-10.8)
[2017-10-22 06:26] LABS: ALANINE AMINOTRANSFERASE 12 U/L (12-78); ALBUMIN 3.1 G/DL (3.4-5.0); ALBUMIN/GLOBULIN RATIO 1.1 (1.0-2.7); ALKALINE PHOSPHATASE 29 U/L (46-116); ANION GAP 9 mmol/L (5-15); ASPARTATE AMINO TRANSFERASE 12 U/L (15-37); BILIRUBIN,TOTAL 0.2 MG/DL (0.2-1.0); BLOOD UREA NITROGEN 17 mg/dL (7-18); CALCIUM 8.1 MG/DL (8.5-10.1); CARBON DIOXIDE 25 MMOL/L (21-32); CHLORIDE 109 MMOL/L (98-107); CREATININE 0.7 MG/DL (0.55-1.30); PHOSPHORUS 3.5 MG/DL (2.5-4.9); POTASSIUM 4.1 MMOL/L (3.5-5.1); SODIUM 143 MMOL/L (136-145)
[2017-10-22] MEDS: Morphine Sulfate 2mg/ml Inj(IV/IM USE ONLY) IVP PRN ×2 (07:38→15:14)
[2017-10-22] MEDS: cefTRIAXone 1 GM in D5W 55 ML IVPB SCH (07:38)
[2017-10-22] MEDS: Depakote ER 250mg tab ORAL SCH (07:39)
[2017-10-22] MEDS: Heparin 5000 units/ml inj SUBQ SCH (07:47)
[2017-10-22 08:00] VITALS: BP 95/64
--- NOTE | 2017-10-22 08:56 | Infectious Diseases Prog Note ---
Assessment/Plan Assessment/Plan Ms Chowdary is a 52 yo female with PMHx Seizure disorder ,asthma /COPD, tracheostomy ,status post removal ,hepatitis C, hypertension, history of CVA, bipolar disorder who presented the ED 10/20/17 with inability to urinate. # Inability to Urinate - Infection unlikely, Neurogenic bladder/spasm UA with some mildly increase WBCs and inability to urinate now resolved - Urine Cx pending but NGTD - Urine Cx E. coli 10/15/17 #Seizure disorder , #Asthma/COPD #SP tracheostomy ,status post removal #Hepatitis C #Hypertension #Hx CVA 1992 Left sided deficits #Bipolar disorder PLAN: - Continue Ceftriaxone #2/5 - Will stop if urine culture negative tomorrow - If patient needs to D/C would recommend short course of PO Augmentin 500mg BID to end on 10/25/17 - 10/21 SP Vancomycin #1 and Cefepime #1 - f/u urine cultures - recommend urology consult for inability to urinate. - monitor CBC and Temps Thank you for consulting us for the care of this patient. We will continue to follow with you. Subjective Allergies: Coded Allergies: No Known Allergies (Verified Allergy, Unknown, 05/09/08) Subjective Patient reports no Complaints Denies N/V/D and fever Objective Vital Signs Last 24 Hour Vital Signs Date Time Temp Pulse Resp B/P (MAP) Pulse Ox O2 Delivery O2 Flow Rate FiO2 10/22/17 07:38 98.6 10/22/17 04:00 98.6 82 19 95/67 (76) 98 98.6 10/22/17 00:00 98.3 75 19 98/90 (93) 99 98.3 10/21/17 21:23 97.9 10/21/17 21:00 Room Air 10/21/17 20:00 97.9 100 19 95/66 (76) 95 97.9 10/21/17 16:42 98.6 100 18 93/68 (76) 95 98.6 10/21/17 12:00 98.4 100 18 110/75 (87) 95 98.4 10/21/17 09:00 Room Air Height (Feet): 4 Height (Inches): 10.00 Weight (Pounds): 130 Objective Gen: NAD, well appearing, alert HEENT: NCAT, MMM, EOMI, No scleral icterus LUNGS: CTAB, No W/C, No Accessory muscle use CARDS: RRR, S1, S2, No M/R/G,~ ABD: Soft, NT, ND, No R/G, + BS, No HSM, No Masses Ext: C/C/E, Pulses 2+ B/L (DP, Rad), Some contracture of left arm NEURO: A/O x 4, Left sided weakness, Strength 5/5 lower ext. Microbiology Date/Time Source Procedure Growth Status 10/20/17 17:15 Blood Blood Culture - Preliminary NO GROWTH AFTER 24 HOURS Resulted 10/20/17 17:05 Blood Blood Culture - Preliminary NO GROWTH AFTER 24 HOURS Resulted 10/20/17 17:15 Urine,Clean Catch Urine Culture - Preliminary NO GROWTH Resulted Laboratory Tests Test 10/22/17 05:20 White Blood Count 8.2 K/UL (4.8-10.8) Red Blood Count 3.86 M/UL (4.20-5.40) L Hemoglobin 12.1 G/DL (12.0-16.0) Hematocrit 36.3 % (37.0-47.0) L Mean Corpuscular Volume 94 FL (80-99) Mean Corpuscular Hemoglobin 31.3 PG (27.0-31.0) H Mean Corpuscular Hemoglobin Concent 33.3 G/DL (32.0-36.0) Red Cell Distribution Width 12.2 % (11.6-14.8) Platelet Count 228 K/UL (150-450) Mean Platelet Volume 6.7 FL (6.5-10.1) Neutrophils (%) (Auto) % (45.0-75.0) Lymphocytes (%) (Auto) % (20.0-45.0) Monocytes (%) (Auto) % (1.0-10.0) Eosinophils (%) (Auto) % (0.0-3.0) Basophils (%) (Auto) % (0.0-2.0) Differential Total Cells Counted 100 Neutrophils % (Manual) 34 % (45-75) L Lymphocytes % (Manual) 57 % (20-45) H Monocytes % (Manual) 7 % (1-10) Eosinophils % (Manual) 1 % (0-3) Basophils % (Manual) 1 % (0-2) Band Neutrophils 0 % (0-8) Platelet Estimate Adequate Platelet Morphology Normal Sodium Level 143 MMOL/L (136-145) Potassium Level 4.1 MMOL/L (3.5-5.1) Chloride Level 109 MMOL/L (98-107) H Carbon Dioxide Level 25 MMOL/L (21-32) Anion Gap 9 mmol/L (5-15) Blood Urea Nitrogen 17 mg/dL (7-18) Creatinine 0.7 MG/DL (0.55-1.30) Estimat Glomerular Filtration Rate > 60 mL/min (>60) Glucose Level 88 MG/DL (74-106) Calcium Level 8.1 MG/DL (8.5-10.1) L Phosphorus Level 3.5 MG/DL (2.5-4.9) Magnesium Level 1.7 MG/DL (1.8-2.4) L Total Bilirubin 0.2 MG/DL (0.2-1.0) Aspartate Amino Transf (AST/SGOT) 12 U/L (15-37) L Alanine Aminotransferase (ALT/SGPT) 12 U/L (12-78) Alkaline Phosphatase 29 U/L (46-116) L Total Protein 5.8 G/DL (6.4-8.2) L Albumin 3.1 G/DL (3.4-5.0) L Globulin 2.7 g/dL Albumin/Globulin Ratio 1.1 (1.0-2.7) Current Medications Medications (Trade) Dose Ordered Sig/Patricia Route PRN Reason Start Time Stop Time Status Last Admin Dose Admin Acetaminophen (Tylenol) 650 mg Q4H PRN ORAL fever 10/20/17 21:15 11/19/17 21:14 Albuterol/ Ipratropium (Albuterol/ Ipratropium) 3 ml EVERY 4 HOURS PRN HHN Shortness of Breath 10/20/17 21:15 10/25/17 21:14 Ceftriaxone Sodium 1 gm/ Dextrose 55 ml @ 110 mls/hr DAILY IVPB 10/21/17 14:00 10/28/17 13:59 10/22/17 07:38 Clonazepam (KlonoPIN) 1 mg BID ORAL 10/21/17 09:00 10/28/17 08:59 10/22/17 07:39 Divalproex Sodium (Depakote ER) 750 mg EVERY 12 HOURS ORAL 10/21/17 21:00 11/20/17 20:59 10/22/17 07:39 Heparin Sodium (Porcine) (Heparin 5000 units/ml) 5,000 units EVERY 12 HOURS SUBQ 10/20/17 23:15 11/19/17 23:14 10/22/17 07:47 Morphine Sulfate (Morphine Sulfate) 2 mg Q4H PRN IVP Moderate Pain (Pain Scale 4-6) 10/20/17 21:15 10/27/17 21:14 10/22/17 07:38 Ondansetron HCl (Zofran) 4 mg Q6H PRN IVP Nausea & Vomiting 10/20/17 21:15 11/19/17 21:14 Phenazopyridine HCl (Pyridium) 100 mg DAILY PRN ORAL dysuria 10/20/17 21:15 11/19/17 21:14 Phenytoin (Dilantin) 300 mg QHS ORAL 10/20/17 23:04 11/19/17 23:03 10/21/17 20:29 Polyethylene Glycol (Miralax) 17 gm DAILYPRN PRN ORAL Constipation 10/20/17 21:15 11/19/17 21:14 Temazepam (Restoril) 15 mg HSPRN PRN ORAL Insomnia 10/20/17 21:15 10/27/17 21:14 10/21/17 00:22 Masood Villegas M.D. Oct 22, 2017 08:56
[2017-10-22 12:06] VITALS: BP 92/61
--- NOTE | 2017-10-22 13:18 | Neurology Progress Note ---
Interim History Interim History Interim History Ms. Chowdary feels better today. She is getting IV antibiotics for her UTI. She still has her Infante in and denies any bladder symptoms. She continues to be seizure free. She is tolerating her anti-seizure medicines well. She denies any new neurologic symptoms. Review of Systems Neuro Review of Systems Benign. Objective Physical Exam Last Vital Signs Date Time Temp Pulse Resp B/P (MAP) Pulse Ox O2 Delivery O2 Flow Rate FiO2 10/22/17 12:06 98.7 101 19 92/61 (71) 94 98.7 10/22/17 09:51 Room Air Laboratory Tests Test 10/22/17 05:20 White Blood Count 8.2 K/UL (4.8-10.8) Red Blood Count 3.86 M/UL (4.20-5.40) L Hemoglobin 12.1 G/DL (12.0-16.0) Hematocrit 36.3 % (37.0-47.0) L Mean Corpuscular Volume 94 FL (80-99) Mean Corpuscular Hemoglobin 31.3 PG (27.0-31.0) H Mean Corpuscular Hemoglobin Concent 33.3 G/DL (32.0-36.0) Red Cell Distribution Width 12.2 % (11.6-14.8) Platelet Count 228 K/UL (150-450) Mean Platelet Volume 6.7 FL (6.5-10.1) Neutrophils (%) (Auto) % (45.0-75.0) Lymphocytes (%) (Auto) % (20.0-45.0) Monocytes (%) (Auto) % (1.0-10.0) Eosinophils (%) (Auto) % (0.0-3.0) Basophils (%) (Auto) % (0.0-2.0) Differential Total Cells Counted 100 Neutrophils % (Manual) 34 % (45-75) L Lymphocytes % (Manual) 57 % (20-45) H Monocytes % (Manual) 7 % (1-10) Eosinophils % (Manual) 1 % (0-3) Basophils % (Manual) 1 % (0-2) Band Neutrophils 0 % (0-8) Platelet Estimate Adequate Platelet Morphology Normal Sodium Level 143 MMOL/L (136-145) Potassium Level 4.1 MMOL/L (3.5-5.1) Chloride Level 109 MMOL/L (98-107) H Carbon Dioxide Level 25 MMOL/L (21-32) Anion Gap 9 mmol/L (5-15) Blood Urea Nitrogen 17 mg/dL (7-18) Creatinine 0.7 MG/DL (0.55-1.30) Estimat Glomerular Filtration Rate > 60 mL/min (>60) Glucose Level 88 MG/DL (74-106) Calcium Level 8.1 MG/DL (8.5-10.1) L Phosphorus Level 3.5 MG/DL (2.5-4.9) Magnesium Level 1.7 MG/DL (1.8-2.4) L Total Bilirubin 0.2 MG/DL (0.2-1.0) Aspartate Amino Transf (AST/SGOT) 12 U/L (15-37) L Alanine Aminotransferase (ALT/SGPT) 12 U/L (12-78) Alkaline Phosphatase 29 U/L (46-116) L Total Protein 5.8 G/DL (6.4-8.2) L Albumin 3.1 G/DL (3.4-5.0) L Globulin 2.7 g/dL Albumin/Globulin Ratio 1.1 (1.0-2.7) Neurologic Exam Objective PHYSICAL EXAMINATION: GENERAL: She is a well-developed, well-nourished, pleasant lady, lying in bed, in no acute distress. HEAD: Normocephalic and atraumatic. NECK: No neck rigidity was observed. EENT: Examination benign. NEUROLOGICAL EXAMINATION: MENTAL STATUS EXAMINATION: She was awake and alert. She was oriented to person, place, and time. She was able to recall 3/3 words immediately, and could remember them in 1 minute and 3 minutes. She was able to remember presidents, Trump through Stevenson Gilberto. Her mathematical skills were impaired. Her visuospatial function was also impaired. SPEECH: She had mild dysarthria. LANGUAGE: She had anomia for low-frequency words. CRANIAL NERVE EXAMINATION: II: The visual barr were intact to confrontation testing. III, IV, : External ocular movements were full and the pupils 3 mm in diameter, equal, round, regular, and reactive to light. V: She had normal facial sensations and the temporales, masseters, and pterygoids functioned normally. VII: She had left VII central facial paresis. VIII: She was able to hear and had no nystagmus. IX: The palate moved symmetrically on phonation. X: She had no hoarseness of voice. XI: The sternocleidomastoids and trapezii functioned normally. XII: The tongue was in the midline without any fasciculations or atrophy. MOTOR SYSTEM: The tone was increased on the left side with a significant degree of spasticity involving the upper extremity more than lower extremity. Examination of muscle mass revealed wasting of the left upper and lower extremities and she had her left upper extremity in a flexion contracture. Examination of power revealed G 5/5 power on the right side. On the left side, she had G 0/5 power in the finger flexors and finger extensors , G 2/5 in the wrist extensors and wrist flexors, G 5-/5 in the elbow flexors and elbow extensors, G 4+/5 in the left deltoid, G 4-/5 in the left iliopsoas, and G 4++/5 in the toe extensors on the left. SENSORY EXAMINATION: She had intact sensations to pinprick, light touch, and graphesthesia. COORDINATION: She performed well on [id number] and [id number] testing on the right side. On the left side, she was unable to perform [id number] testing and the nhix-cz-clab testing was clumsy. REFLEXES: 2+ on the right and 3+ on the left in the biceps, triceps, brachioradialis, and knees; zero at both ankles. The plantar response was flexor on the right and extensor on the left. STANCE: She stood up independently. GAIT: She walked independently with a left hemiparetic gait. Impression/Recommendations Diagnostic Impression 1. Ms. Sandie Chowdary is a 52-year-old, right-handed, lady, with past history of bipolar affective disorder, stroke with left-sided paresis, poststroke seizure disorder, polysubstance abuse, and prior urinary tract infections, who stopped taking antiseizure medicine about a year ago because she had no seizures for quite sometime and then on 10/14/17 had a flurry of seizures. She has been seizure free since then. 2. She was hospitalized for urinary frequency, followed by urinary incontinence and then urinary retention. 3. She feels better today. She is getting IV antibiotics for her UTI. She still has her Infante in and denies any bladder symptoms. She continues to be seizure free. She is tolerating her anti-seizure medicines well. She denies any new neurologic symptoms. 4. On neurological examination, at this time, she does demonstrate mild problems with memory, visuospatial function, higher cognitive function, and language. She also has a left hemiparesis involving the face and upper extremity more than the lower extremity. Her deep tendon reflexes are brisker on the left side compared to the right. She has an extensor plantar response on the left side. In addition, she walks with left hemiparetic gait. 5. Her last CT scan of the [facility] at [facility] was on , and revealed an old right frontal and basal ganglion infarct. 6. Her laboratory data on admission revealed that her CBC was benign. Her chemistry panel was also benign. Her urinalysis revealed 1+ leukocyte esterase, 2-4 RBCs, and 5-10 WBCs with many bacteria in the urine. 7. The patient's history, neurological examination, and laboratory data, are most compatible with an acute urinary tract infection leading to urinary retention. 8. Her seizures are well controlled on her present therapeutic regimen. Recommendations 1. Continue present management. 2. Dilantin 300 mg q HS. 3. Depakote 750 mg q 12 hours. 4. The patient's urinary tract infection should be treated appropriately. 5. Mobilize with PT. Patricia Bojorquez M.D., M.S.P.H. PATRICIA BOJORQUEZ Oct 22, 2017 13:18
--- NOTE | 2017-10-22 13:46 | Cardiology Report ---
APPROVED REPORT EKG Measurement Heart [id number] Sinus tachycardia Rightward axis Borderline ECG
[2017-10-22] MEDS ORDERED: DEPAKOTE ER250 MG ORAL (14:38)
[2017-10-22 15:52] VITALS: BP 102/69
--- NOTE | 2017-10-22 17:19 | Internal Med Progress Note ---
Subjective Date of Service: Oct 22, 2017 Physician Name Benjamin Crook Attending Physician Esvin Patino MD Current Medications Medications (Trade) Dose Ordered Sig/Patricia Route PRN Reason Start Time Stop Time Status Last Admin Dose Admin Acetaminophen (Tylenol) 650 mg Q4H PRN ORAL fever 10/20/17 21:15 11/19/17 21:14 Albuterol/ Ipratropium (Albuterol/ Ipratropium) 3 ml EVERY 4 HOURS PRN HHN Shortness of Breath 10/20/17 21:15 10/25/17 21:14 Ceftriaxone Sodium 1 gm/ Dextrose 55 ml @ 110 mls/hr DAILY IVPB 10/21/17 14:00 10/28/17 13:59 10/22/17 07:38 Clonazepam (KlonoPIN) 1 mg BID ORAL 10/21/17 09:00 10/28/17 08:59 10/22/17 07:39 Divalproex Sodium (Depakote ER) 750 mg EVERY 12 HOURS ORAL 10/21/17 21:00 11/20/17 20:59 10/22/17 07:39 Heparin Sodium (Porcine) (Heparin 5000 units/ml) 5,000 units EVERY 12 HOURS SUBQ 10/20/17 23:15 11/19/17 23:14 10/22/17 07:47 Morphine Sulfate (Morphine Sulfate) 2 mg Q4H PRN IVP Moderate Pain (Pain Scale 4-6) 10/20/17 21:15 10/27/17 21:14 10/22/17 15:14 Ondansetron HCl (Zofran) 4 mg Q6H PRN IVP Nausea & Vomiting 10/20/17 21:15 11/19/17 21:14 Phenazopyridine HCl (Pyridium) 100 mg DAILY PRN ORAL dysuria 10/20/17 21:15 11/19/17 21:14 Phenytoin (Dilantin) 300 mg QHS ORAL 10/20/17 23:04 11/19/17 23:03 10/21/17 20:29 Polyethylene Glycol (Miralax) 17 gm DAILYPRN PRN ORAL Constipation 10/20/17 21:15 11/19/17 21:14 Temazepam (Restoril) 15 mg HSPRN PRN ORAL Insomnia 10/20/17 21:15 10/27/17 21:14 10/21/17 00:22 Allergies: Coded Allergies: No Known Allergies (Verified Allergy, Unknown, 05/09/08) ROS Limited/Unobtainable: No Constitutional: Reports: no symptoms HEENT: Reports: no symptoms Cardiovascular: Reports: no symptoms Respiratory: Reports: no symptoms Gastrointestinal/Abdominal: Reports: no symptoms Genitourinary: Reports: pain Neurologic/Psychiatric: Reports: no symptoms Subjective 52 YO F admitted with urine retention. Now UTI. Cover for Int Med-Dr Patino. Objective Last Vital Signs Date Time Temp Pulse Resp B/P (MAP) Pulse Ox O2 Delivery O2 Flow Rate FiO2 10/22/17 15:52 98.6 99 20 102/69 (80) 97 98.6 10/22/17 09:51 Room Air General Appearance: WD/WN, no apparent distress, alert EENT: PERRL/EOMI, normal ENT inspection Neck: non-tender, normal alignment, supple, normal inspection Cardiovascular: normal peripheral pulses, normal rate, regular rhythm, no gallop/murmur, no JVD Respiratory/Chest: chest wall non-tender, lungs clear, normal breath sounds, no respiratory distress, no accessory muscle use Abdomen: normal bowel sounds, non tender, soft, no organomegaly, no mass Extremities: other - contracture 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, motor weakness - left Skin: normal pigmentation, warm/dry Laboratory Tests Test 10/22/17 05:20 White Blood Count 8.2 K/UL (4.8-10.8) Red Blood Count 3.86 M/UL (4.20-5.40) L Hemoglobin 12.1 G/DL (12.0-16.0) Hematocrit 36.3 % (37.0-47.0) L Mean Corpuscular Volume 94 FL (80-99) Mean Corpuscular Hemoglobin 31.3 PG (27.0-31.0) H Mean Corpuscular Hemoglobin Concent 33.3 G/DL (32.0-36.0) Red Cell Distribution Width 12.2 % (11.6-14.8) Platelet Count 228 K/UL (150-450) Mean Platelet Volume 6.7 FL (6.5-10.1) Neutrophils (%) (Auto) % (45.0-75.0) Lymphocytes (%) (Auto) % (20.0-45.0) Monocytes (%) (Auto) % (1.0-10.0) Eosinophils (%) (Auto) % (0.0-3.0) Basophils (%) (Auto) % (0.0-2.0) Differential Total Cells Counted 100 Neutrophils % (Manual) 34 % (45-75) L Lymphocytes % (Manual) 57 % (20-45) H Monocytes % (Manual) 7 % (1-10) Eosinophils % (Manual) 1 % (0-3) Basophils % (Manual) 1 % (0-2) Band Neutrophils 0 % (0-8) Platelet Estimate Adequate Platelet Morphology Normal Sodium Level 143 MMOL/L (136-145) Potassium Level 4.1 MMOL/L (3.5-5.1) Chloride Level 109 MMOL/L (98-107) H Carbon Dioxide Level 25 MMOL/L (21-32) Anion Gap 9 mmol/L (5-15) Blood Urea Nitrogen 17 mg/dL (7-18) Creatinine 0.7 MG/DL (0.55-1.30) Estimat Glomerular Filtration Rate > 60 mL/min (>60) Glucose Level 88 MG/DL (74-106) Calcium Level 8.1 MG/DL (8.5-10.1) L Phosphorus Level 3.5 MG/DL (2.5-4.9) Magnesium Level 1.7 MG/DL (1.8-2.4) L Total Bilirubin 0.2 MG/DL (0.2-1.0) Aspartate Amino Transf (AST/SGOT) 12 U/L (15-37) L Alanine Aminotransferase (ALT/SGPT) 12 U/L (12-78) Alkaline Phosphatase 29 U/L (46-116) L Total Protein 5.8 G/DL (6.4-8.2) L Albumin 3.1 G/DL (3.4-5.0) L Globulin 2.7 g/dL Albumin/Globulin Ratio 1.1 (1.0-2.7) Microbiology Date/Time Source Procedure Growth Status 10/20/17 17:15 Blood Blood Culture - Preliminary NO GROWTH AFTER 24 HOURS Resulted 10/20/17 17:05 Blood Blood Culture - Preliminary NO GROWTH AFTER 24 HOURS Resulted 10/20/17 17:15 Urine,Clean Catch Urine Culture - Preliminary NO GROWTH AFTER 24 HOURS Resulted Intake and Output 8/9/18 8/10/18 19:00 07:00 Intake Total 560 ml 360 ml Output Total 300 ml Balance 260 ml 360 ml Intake Oral 560 ml 360 ml Output Urine Total 300 ml Assessment/Plan Problem List: (1) Urine retention Assessment & Plan: See neurology note.Infante in place (2) UTI (urinary tract infection) Assessment & Plan: Urine cult=no growth. Continue ceftriaxone and vanco (3) Cerebral vascular disease (4) Left hemiparesis (5) Seizure Assessment & Plan: Continue depakote and dilantin per neurology (6) Bipolar disorder Status: stable Benjamin Crook MD Oct 22, 2017 17:19
[2017-10-22] MEDS ORDERED: NS 500ML ONE (17:24)
[2017-10-22] MEDS ORDERED: Tubing IV Secondary IV ONE (17:24)
[2017-10-22] MEDS ORDERED: D5W 275ml ONE (17:24)
--- NOTE | 2017-10-24 12:23 | Discharge Summary ---
Discharge Summary Discharge Summary _ DATE OF ADMISSION: 10/20/2017 DATE OF DISCHARGE: 10/22/2017 REASON FOR ADMISSION: 51 years old female with past medical history significant for COPD, respiratory failure, requiring tracheostomy ,status postremoval, seizure disorder, history of CVA with left-sided residual deficit, hepatitis C, hypertension, bipolar disorder presented to emergency department complaining of inability to urinate and abdominal bloating. She denied fever and chills. She denied nausea and vomiting. She was recently evaluated for seizure and was placed on Dilantin on previous admission. She denied having any seizure since she left the hospital. According to caregiver, patient was brought to ED for evaluation due to new onset of urinary incontinence in the last few days. Vital signs reveal tachycardia with heart rate 112. Patient was afebrile. Laboratory workup was essentially stable: no leukocytosis ,stable hemoglobin and hematocrit. Stable electrolytes and renal parameters. Urinalysis with evidence of pyuria. Patient admitted with diagnoses of possible urinary tract infection, urinary incontinence, seizure disorder CONSULTANTS: neurologist Dr. Stoll pulmonary Dr. Holley ID specialist [facility] COURSE: Patient admitted. Patient was started on empiric antibiotics and Pyridium. ID consult was requested. Patient had no leukocytosis, no fever. Blood culture were negative , urine culture negative. Antibiotic stopped as per ID specialist recommendations. Unlikely urinary tract infection. Patient likely had neurogenic bladder versus spasm. Urology evaluation as outpatient was recommended. Neurologist closely followed. Seizure precautions were maintain. Dilantin and Depakote levels therapeutic. No evidence of seizure activity while in the hospital. Patient was working with physical and occupational therapists. Fall precautions maintain. DVT prophylaxis provided. Bowel regimen instituted. Supportive care provided. Pain management was addressed. Supplemental oxygen provided as needed to keep pulse oximetry above 92%. Pulmonary toilet was on standby as needed. Psychiatric medication regimen continued as from home. Patient clinically improved and was stable for discharge home FINAL DIAGNOSES: Urinary incontinence Likely neurogenic bladder versus spasm Seizure disorder Cerebrovascular disorder with left hemiplegia Hepatitis C Bipolar disorder COPD DISCHARGE MEDICATIONS: See Medication Reconciliation list. DISCHARGE INSTRUCTIONS: [Patient was discharged home with home health services. Follow up with primary care provider in one week. I have been assigned to dictate discharge summary for this account. I was not involved in the patient's management. Barbara Lam NP Oct 24, 2017 12:23
== END 2017-10-22 17:25 | disposition home health service (06) | DRG 696 ==
LOC: EMR 15:35 → 4E 20:00 → EDBEDREQ 22:03
DX: N39.498 Other specified urinary incontinence (principal); I69.354 Hemiplegia and hemiparesis following cerebral infarction affecting left non-dominant side; N31.9 Neuromuscular dysfunction of bladder, unspecified; I67.9 Cerebrovascular disease, unspecified; R56.9 Unspecified convulsions; Z87.891 Personal history of nicotine dependence; G40.909 Epilepsy, unspecified, not intractable, without status epilepticus; F31.9 Bipolar disorder, unspecified; R32 Unspecified urinary incontinence; N32.89 Other specified disorders of bladder; B19.20 Unspecified viral hepatitis C without hepatic coma
CPT/HCPCS: 36415; 80053; 80164; 80185; 81003; 82550; 82553; 83605; 83735; 84100; 84484; 85007; 85025; 87040; 87086; 93005; J8499

== ENCOUNTER 2018-08-22 18:14 | Emergency (ER) | payer MEDICARE, OTHER ==
[~2018-08-22] VITALS: Ht 147.3 cm; Wt 59.0 kg
[~2018-08-22 18:14] MED LIST changes: +DEPAKOTE ER250 MG ORAL
--- NOTE | 2018-08-22 18:54 | NUR ---
ED Nurse Note: Pt came in from home due to L knee and L leg pain chronic pain. 09/21 carlos. Also c/o non-productive coughing x 1 week. AOx4, HR 118 upon arrival, GAYATHRI aware. Also reported her last seizure activity was 3 weeks ago. Will cont to monitor.
--- NOTE | 2018-08-22 18:55 | NUR ---
ED Nurse Note: X-ray tech at bedside for imaging.
[2018-08-22 19:00] VITALS: BP 99/72
--- NOTE | 2018-08-22 19:17 | NUR ---
ED Nurse Note: received report from Alejandra GOMEZ. Pt in bed getting blood drawn by day shift RN. Pt awake, AAOx4, talkative, presents with left side weakness and LUE contracture s/p old CVA from when pt was in her 20s years of age. Pt's needs met. Will continue to monitor and carry out ER MD's orders.
[2018-08-22 19:59] LABS: BASOPHILS % (AUTO) 1.3 % (0.0-2.0); EOSINOPHILS % (AUTO) 1.8 % (0.0-3.0); HEMATOCRIT 41.8 % (37.0-47.0); LYMPHOCYTES % (AUTO) 51.1 % (20.0-45.0); MEAN CORPUSCULAR VOLUME 92 FL (80-99); NEUTROPHILS % (AUTO) 36.9 % (45.0-75.0); PLATELET COUNT 228 K/UL (150-450); RED BLOOD COUNT 4.53 M/UL (4.20-5.40); RED CELL DISTRIBUTION WIDTH 12.4 % (11.6-14.8); WHITE BLOOD COUNT 6.6 K/UL (4.8-10.8)
[2018-08-22 20:19] LABS: ANION GAP 7 mmol/L (5-15); BLOOD UREA NITROGEN 21 mg/dL (7-18); CARBON DIOXIDE 28 MMOL/L (21-32); CHLORIDE 105 MMOL/L (98-107); CREATININE 0.7 MG/DL (0.55-1.30); POTASSIUM 3.9 MMOL/L (3.5-5.1); SODIUM 139 MMOL/L (136-145)
[2018-08-22 20:20] VITALS: BP 110/96
[2018-08-22 20:23] LABS: ALANINE AMINOTRANSFERASE 18 U/L (12-78); ALBUMIN 3.9 G/DL (3.4-5.0); ALBUMIN/GLOBULIN RATIO 1.3 (1.0-2.7); ALKALINE PHOSPHATASE 64 U/L (46-116); ASPARTATE AMINO TRANSFERASE 20 U/L (15-37); BILIRUBIN,TOTAL 0.1 MG/DL (0.2-1.0)
--- NOTE | 2018-08-22 20:39 | Emergency Room Report ---
History of Present Illness General Chief Complaint: General Complaint Source: Patient, Medical Record Present Illness HPI This patient has a history of chronic pain. She has a history of CVA with left sided weakness. She states that she has pain in her left ankle and left knee. She states that her pain is always on her left side. She admits that she was doing a significant amount of walking in uncomfortable shoes. She denies trauma or specific injury. She denies swelling. She denies fever or chills. She has no other complaints. Allergies: Coded Allergies: No Known Allergies (Verified Allergy, Unknown, 05/09/08) Patient History Past Medical History: see triage record, COPD, CVA/TIA, seizures, other - HEP C , chronic pain, scoliosis Social History: Denies: smoking, alcohol use, drug use Last Menstrual Period: menopause Reviewed Nursing Documentation: PMH: Agreed; PSxH: Agreed Nursing Documentation-PMH Past Medical History: No History, Except For Hx Cardiac Problems: No Hx Hypertension: Yes Hx Pacemaker: No - TRACHEOSTOMY (RESOLVED), HEP C Hx Asthma: No Hx COPD: Yes Hx Diabetes: No Hx Cancer: No Hx Gastrointestinal Problems: No Hx Dialysis: No Hx Neurological Problems: Yes Hx Cerebrovascular Accident: Yes Hx Transient Ischemic Attacks: No Hx Dementia: No Hx Alzheimer's Disease: No Hx Parkinson's Disease: No Hx Meningitis: No Hx Encephalitis: No Hx Seizures: Yes Hx Epilepsy: No Hx Multiple Sclerosis: No Hx Amyotrophic Lat Sclerosis: No Hx Guillian-[place] Syndrome: No Hx Paralysis: No Hx Peripheral Neuropathy: No Hx Spinal Cord Injury: No Hx Head Trauma: No Hx Traumatic Brain Injury: No Hx Memory Loss: No Hx Concentration Difficulty: Yes Hx Speech Problem: No Hx Tremors: No Hx Vertigo: No Hx Dizziness: Yes Hx Syncope: No Hx Headaches: Yes Hx Aphasia: No Hx Dysphasia: No Hx Numbness: Yes - left lower extremities Hx Weakness: Yes - oleft sided weakness Hx Fatigue: Yes Hx Neurologic Surgery: No Hx Brain Shunt: No Review of Systems All Other Systems: negative except mentioned in HPI Physical Exam Vital Signs Date Time Temp Pulse Resp B/P (MAP) Pulse Ox O2 Delivery O2 Flow Rate FiO2 08/22/18 18:20 97.9 118 18 114/76 (89) 95 Room Air Sp02 EP Interpretation: reviewed, normal General Appearance: no apparent distress, alert, GCS 15, non-toxic Head: normocephalic, atraumatic Eyes: bilateral eye normal inspection, bilateral eye PERRL ENT: hearing grossly normal, normal pharynx, no angioedema, normal voice Neck: full range of motion, supple/symm/no masses Respiratory: chest non-tender, lungs clear, normal breath sounds, no respiratory distress, no retraction, no accessory muscle use, speaking full sentences Cardiovascular #1: regular rate, rhythm, no edema Gastrointestinal: normal bowel sounds, non tender, soft, non-distended, no guarding, no rebound Rectal: deferred Musculoskeletal: back normal, normal range of motion, non-tender Neurologic: alert, oriented x3, responsive, motor strength/tone normal, sensory intact, speech normal Psychiatric: judgement/insight normal, memory normal, mood/affect normal, no suicidal/homicidal ideation Skin: normal color, no rash, warm/dry, well hydrated Medical Decision Making Diagnostic Impression: Primary Impression: Chronic pain ER Course This patient has a clinical presentation consistent with musculoskeletal pain. There are no red flags on physical exam or history that would make me concerned for underlying fracture. I did obtain x-rays of the left ankle and left knee. There are no fractures. I suspect this is related to the patient's known CVA and overuse related to her baseline musculoskeletal status. There is no evidence of compartment syndrome. There is no neurologic deficit. The patient was instructed on supportive home measures. No emergency medical condition was identified. The patient was given return precautions and followup instructions. Laboratory Tests Test 08/22/18 19:40 White Blood Count 6.6 K/UL (4.8-10.8) Red Blood Count 4.53 M/UL (4.20-5.40) Hemoglobin 14.0 G/DL (12.0-16.0) Hematocrit 41.8 % (37.0-47.0) Mean Corpuscular Volume 92 FL (80-99) Mean Corpuscular Hemoglobin 30.8 PG (27.0-31.0) Mean Corpuscular Hemoglobin Concent 33.4 G/DL (32.0-36.0) Red Cell Distribution Width 12.4 % (11.6-14.8) Platelet Count 228 K/UL (150-450) Mean Platelet Volume 6.1 FL (6.5-10.1) L Neutrophils (%) (Auto) 36.9 % (45.0-75.0) L Lymphocytes (%) (Auto) 51.1 % (20.0-45.0) H Monocytes (%) (Auto) 9.0 % (1.0-10.0) Eosinophils (%) (Auto) 1.8 % (0.0-3.0) Basophils (%) (Auto) 1.3 % (0.0-2.0) Sodium Level 139 MMOL/L (136-145) Potassium Level 3.9 MMOL/L (3.5-5.1) Chloride Level 105 MMOL/L (98-107) Carbon Dioxide Level 28 MMOL/L (21-32) Anion Gap 7 mmol/L (5-15) Blood Urea Nitrogen 21 mg/dL (7-18) H Creatinine 0.7 MG/DL (0.55-1.30) Estimate Glomerular Filtration Rate > 60 mL/min (>60) Glucose Level 91 MG/DL (74-106) Calcium Level 9.0 MG/DL (8.5-10.1) Total Bilirubin 0.1 MG/DL (0.2-1.0) L Aspartate Amino Transferase (AST) 20 U/L (15-37) Alanine Aminotransferase (ALT) 18 U/L (12-78) Alkaline Phosphatase 64 U/L (46-116) Total Protein 7.0 G/DL (6.4-8.2) Albumin 3.9 G/DL (3.4-5.0) Globulin 3.1 g/dL Albumin/Globulin Ratio 1.3 (1.0-2.7) Last Vital Signs Date Time Temp Pulse Resp B/P (MAP) Pulse Ox O2 Delivery O2 Flow Rate FiO2 08/22/18 19:00 97.9 102 18 99/72 97 Room Air Status: improved Disposition: HOME, SELF-CARE Condition: Improved Referrals: NON PHYSICIAN (PCP) Leticia Rodriguez DO Aug 22, 2018 20:38
[2018-08-22 20:54] VITALS: BP 110/96
--- NOTE | 2018-08-22 20:59 | NUR ---
ED Nurse Note: Pt cleared by health care Provider for discharge. DC instructions/prescription was given and explained to pt and verbalized understanding of teachings. All medical deviecs such as ID band removed. Pt is AAO x4, ambulatory and left with all personal belongings.
--- NOTE | 2018-08-23 12:02 | Diagnostic Imaging Report ---
Indication: Dyspnea Comparison: 10/14/2015 A single view chest radiograph was obtained. Findings: Cardiomediastinal appearance is within normal limits for age. The lungs are hyperexpanded. Pulmonary vascularity is appropriate. The diaphragmatic contour is smooth and costophrenic angles are sharp. No pleural effusions are identified. There is a moderate right convex scoliosis of the thoracic spine. Impression: COPD Scoliosis
--- NOTE | 2018-08-23 12:06 | Diagnostic Imaging Report ---
INDICATION: Knee Pain COMPARISON: None 3 views of the left knee were obtained. FINDINGS: No acute fracture, malalignment, or joint effusion are identified. Joint space is relatively well-maintained. Impression: Negative for acute injury
--- NOTE | 2018-08-23 12:10 | Diagnostic Imaging Report ---
Indication: left ankle pain Comparison: None Findings: 3 views of the left ankle obtained. Soft tissue swelling is present particularly on the lateral part of the ankle. There is no acute fracture identified. However the ankle mortise appears abnormal especially on the oblique view. There is apparent subluxation of the tibiotalar joint and a slightly inverted fashion. Ligamentous disruption should be considered, especially tibiofibular ligaments. IMPRESSION: Abnormal alignment of the tibiotalar joint. Ligamentous laxity and/or disruption on the lateral side of the ankle should be considered. No acute fracture identified. Moderate soft tissue swelling.
== END 2018-08-22 20:59 | disposition home or self-care (01) ==
LOC: EMR 19:00
DX: G89.29 Other chronic pain (principal); M25.572 Pain in left ankle and joints of left foot; M25.562 Pain in left knee; G81.94 Hemiplegia, unspecified affecting left nondominant side; J44.9 Chronic obstructive pulmonary disease, unspecified; G40.909 Epilepsy, unspecified, not intractable, without status epilepticus; Z86.19 Personal history of other infectious and parasitic diseases; M41.9 Scoliosis, unspecified; I10 Essential (primary) hypertension
CPT/HCPCS: 71045; 80053; 80307; 85025; 99284

== ENCOUNTER 2018-09-06 21:55 | Emergency (ER) | payer MEDICARE, OTHER ==
[~2018-09-06] VITALS: Ht 147.3 cm; Wt 54.4 kg
[2018-09-06 22:00] VITALS: BP 126/89
--- NOTE | 2018-09-06 22:00 | NUR ---
ED Nurse Note: Pt arrived into ED s/p fall that occured approximately 3 hours ago. Pt has hx of stroke with left sided weakness. Pt states she was walking in her home when she tripped and fell onto her left side. Pt complaining of pain around her left lateral side that radiates to her ribs. Pain describes as aching, 7/10.
--- NOTE | 2018-09-06 22:20 | Emergency Room Report ---
History of Present Illness General Chief Complaint: Multiple Trauma/Fall Source: Patient Present Illness HPI This is a 53-year-old female with a history of CVA with left-sided weakness. She presents with a fall and left rib pain. She is normally unsteady on her feet. She tripped and fell and hit the edge of a plastic bin. This occurred just prior to arrival. Chief complaint of left rib pain. Pain worse with inspiration. Worse with movement. Pain is 9 out of 10. No head injury. No loss of consciousness. Allergies: Coded Allergies: No Known Allergies (Verified Allergy, Unknown, 05/09/08) Patient History Past Medical History: see triage record, old chart reviewed Past Surgical History: other Pertinent Family History: none Social History: Denies: smoking Last Menstrual Period: 12 YEARS AGO Now: No Immunizations: other Reviewed Nursing Documentation: PMH: Agreed; PSxH: Agreed Nursing Documentation-PMH Past Medical History: No History, Except For Hx Hypertension: Yes Hx Pacemaker: No - TRACHEOSTOMY (RESOLVED), HEP C Hx Diabetes: No Hx Cancer: No Hx Gastrointestinal Problems: No Hx Dialysis: No History Of Psychiatric Problem: Yes - BIPOLAR Hx Neurological Problems: Yes Hx Cerebrovascular Accident: Yes Hx Transient Ischemic Attacks: No Hx Dementia: No Hx Alzheimer's Disease: No Hx Parkinson's Disease: No Hx Meningitis: No Hx Encephalitis: No Hx Seizures: Yes Hx Epilepsy: No Hx Multiple Sclerosis: No Hx Amyotrophic Lat Sclerosis: No Hx Guillian-[place] Syndrome: No Hx Paralysis: No Hx Peripheral Neuropathy: No Hx Spinal Cord Injury: No Hx Head Trauma: No Hx Traumatic Brain Injury: No Hx Memory Loss: No Hx Concentration Difficulty: Yes Hx Speech Problem: No Hx Tremors: No Hx Vertigo: No Hx Dizziness: Yes Hx Syncope: No Hx Headaches: Yes Hx Aphasia: No Hx Dysphasia: No Hx Numbness: Yes - left lower extremities Hx Weakness: Yes - oleft sided weakness Hx Fatigue: Yes Hx Neurologic Surgery: No Hx Brain Shunt: No Review of Systems Eye: Denies: eye pain, blurred vision ENT: Denies: ear pain, nose congestion, throat swelling Respiratory: Denies: cough, shortness of breath Cardiovascular: Denies: chest pain, palpitations Gastrointestinal: Denies: abdominal pain, diarrhea, nausea, vomiting Musculoskeletal: Denies: back pain, joint pain Skin: Denies: rash Neurological: Denies: headache, numbness Endocrine: Denies: increased thirst, increased urine Hematologic/Lymphatic: Denies: easy bruising All Other Systems: negative except mentioned in HPI Physical Exam Vital Signs Date Time Temp Pulse Resp B/P (MAP) Pulse Ox O2 Delivery O2 Flow Rate FiO2 09/06/18 21:56 98.4 122 16 126/89 (101) 96 Room Air Vitals with tachycardia Sp02 EP Interpretation: reviewed, normal General Appearance: well appearing, no apparent distress, alert Head: normocephalic, atraumatic Eyes: bilateral eye PERRL, bilateral eye EOMI ENT: hearing grossly normal, normal pharynx Neck: full range of motion, supple, no meningismus Respiratory: lungs clear, normal breath sounds, other - Left lateral ribs tenderness Cardiovascular #1: regular rate, rhythm, no murmur Gastrointestinal: normal bowel sounds, non tender, no mass, no organomegaly, no bruit, non-distended Musculoskeletal: back normal, gait/station normal, normal range of motion Psychiatric: mood/affect normal Skin: warm/dry Medical Decision Making Diagnostic Impression: Primary Impression: Ribs, multiple fractures Qualified Codes: S22.42XA - Multiple fractures of ribs, left side, initial encounter for closed fracture ER Course Patient with a fall and has multiple rib fractures. No flow chest. No pneumothorax. Pain is improved. Will discharge home. Other X-Ray Diagnostic Results Other X-Ray Diagnostic Results : X-Ray ordered: Left ribs x-rays # of Views/Limited Vs Complete: Complete Indication: Pain EP Interpretation: Yes Interpretation: no dislocation, no soft tissue swelling, other - no ptx. 4th , 5th, and 6th rib frx. Impression: Other - multiple rib frx Electronically Signed by: Clemente Daugherty MD Last Vital Signs Date Time Temp Pulse Resp B/P (MAP) Pulse Ox O2 Delivery O2 Flow Rate FiO2 09/06/18 22:00 98.4 110 16 126/89 96 Room Air Status: improved Disposition: HOME, SELF-CARE Condition: Stable Scripts Ibuprofen* (MOTRIN*) 600 Mg Tablet 600 MG ORAL THREE TIMES A DAY, #30 TAB 0 Refills Prov: Clemente Daugherty MD 09/06/18 Hydrocodone/Acetaminophen 5-325* (HYDROCODONE/ACETAMINOPHEN 5-325*) 1 Each Tablet 1 TAB ORAL Q6H PRN for For Pain, #30 TAB 0 Refills Prov: Clemente Daugherty MD 09/06/18 Additional Instructions: Follow-up with your doctor in 7 days. If continue with severe pain, may need referral to see anesthesia for nerve block. Clemente Daugherty MD Sep 06, 2018 22:19
[2018-09-06] MEDS ORDERED: HYDROcodone/Acetamin 5/325 tab ORAL ONE (22:30)
[2018-09-06] MEDS ORDERED: IBUPROFEN600 MG ORAL (22:57)
[2018-09-06] MEDS ORDERED: HYDROCODON-ACE1 EA15 ORAL (22:57)
[2018-09-06 23:12] VITALS: BP 132/81
--- NOTE | 2018-09-06 23:12 | NUR ---
ED Nurse Note: Pt cleared by ERMD, pt A/Ox4, VSS, showing no signs of acute distress. Discharge paperwork and prescriptions provided. Pt verbalized understanding of all instructions. All belongings taken with pt. Pt left ED in wheelchair with father @ bedside. ID band removed.
--- NOTE | 2018-09-07 12:19 | Diagnostic Imaging Report ---
Indication: Left sided rib pain. Trauma. Findings: 4 views of the left chest wall was obtained for evaluation of the ribs. There are multiple acute rib fractures demonstrated involving the posterior lateral ribs 2 through 6. There is no pneumothorax. There is mild atelectasis at both lung bases. No definite pleural effusion seen. There is a moderate scoliosis of the thoracic spine convex to the right. IMPRESSION: Acute left posterolateral rib fractures 2 through 6.
== END 2018-09-06 23:12 | disposition home or self-care (01) ==
LOC: EMR 22:30
DX: S22.42XA Multiple fractures of ribs, left side, initial encounter for closed fracture (principal); G81.94 Hemiplegia, unspecified affecting left nondominant side; I10 Essential (primary) hypertension; Z86.19 Personal history of other infectious and parasitic diseases; W01.0XXA Fall on same level from slipping, tripping and stumbling without subsequent striking against object, initial encounter; F31.9 Bipolar disorder, unspecified; G40.909 Epilepsy, unspecified, not intractable, without status epilepticus
CPT/HCPCS: 99283